=== PATIENT | female | born 1940 | race Caucasian/White ===

== ENCOUNTER 2019-09-21 14:12 | Inpatient (IN) | payer MEDICARE ==
[2019-09-21 14:52] LABS: HEMOGLOBIN 14.5 g/dL (12.0-15.5); MEAN CORPUSCULAR HEMOGLOBIN 28.9 pg (27.0-33.4); MEAN CORPUSCULAR HGB CONC 33.7 g/dL (32.0-36.0); MEAN CORPUSCULAR VOLUME 86 fl (80-97); PLATELET COUNT 284 10^3/uL (150-450); RED BLOOD COUNT 5.01 10^6/uL (3.72-5.28); RED CELL DISTRIBUTION WIDTH 16.4 % (11.5-14.0); WHITE BLOOD COUNT 10.4 10^3/uL (4.0-10.5)
[2019-09-21 14:59] LABS: VENOUS BLOOD BASE EXCESS -1.4 mmol/L; VENOUS BLOOD HCO3 25.4 mmol/L (20-32); VENOUS BLOOD PCO2 50.6 mmHg (35-63); VENOUS BLOOD PH 7.32 (7.30-7.42)
--- NOTE | 2019-09-21 15:14 | RADIOLOGY REPORT (SQ) ---
EXAM DESCRIPTION: CHEST SINGLE VIEW IMAGES COMPLETED DATE/TIME: 09/21/2019 3:04 pm REASON FOR STUDY: sob COMPARISON: None. EXAM PARAMETERS: NUMBER OF VIEWS: One view. TECHNIQUE: Single frontal radiographic view of the chest acquired. RADIATION DOSE: NA LIMITATIONS: None. FINDINGS: LUNGS AND PLEURA: Atelectasis in the left medial base. Slight elevation of left hemidiaph ragm. Small left effusion cannot be excluded. No focal consolidation or pneumothorax. MEDIASTINUM AND HILAR STRUCTURES: No masses. Contour normal. HEART AND VASCULAR STRUCTURES: Heart normal in size. Normal vasculature. BONES: No acute findings. HARDWARE: None in the chest. OTHER: No other significant finding. IMPRESSION: Left basilar atelectasis. No other significant findings. TECHNICAL DOCUMENTATION: JOB ID: [id number] 2010 [employer]- All Rights Reserved Reading location - IP/workstation name: [email or web address]
[2019-09-21 15:15] LABS: PROTHROMBIN TIME 14.2 SEC (11.4-15.4)
[2019-09-21 15:18] LABS: ALBUMIN 3.9 g/dL (3.5-5.0); ALKALINE PHOSPHATASE 136 U/L (38-126); ANION GAP 9 (5-19); ASPARTATE AMINO TRANSFERASE 67 U/L (14-36); BILIRUBIN,TOTAL 0.4 mg/dL (0.2-1.3); BLOOD UREA NITROGEN 19 mg/dL (7-20); CALCIUM 9.5 mg/dL (8.4-10.2); CARBON DIOXIDE 27 mmol/L (22-30); CHLORIDE 103 mmol/L (98-107); GLUCOSE 125 mg/dL (75-110); POTASSIUM 3.9 mmol/L (3.6-5.0); TOTAL PROTEIN 6.9 g/dL (6.3-8.2)
[2019-09-21 15:27] LABS: TROPONIN I 0.031 ng/mL
[2019-09-21 15:35] LABS: ABSOLUTE LYMPHOCYTES# (MANUAL) 1.6 10^3/uL (0.5-4.7); ABSOLUTE MONOCYTES # (MANUAL) 0.6 10^3/uL (0.1-1.4); BASOPHILS % (MANUAL) 0 % (0-2); EOSINOPHILS % (MANUAL) 0 % (0-6); LYMPHOCYTES % (MANUAL) 15 % (13-45); MONOCYTES % (MANUAL) 6 % (3-13); SEGMENTED NEUTROPHILS % (MAN) 77 % (42-78); TOTAL CELLS COUNTED 100
[2019-09-21 15:36] LABS: HYPERSEGMENTED NEUTROPHILS PRESENT; PLATELET COMMENT ADEQUATE
[2019-09-21 15:37] LABS: ANISOCYTOSIS 1+
[2019-09-21 15:39] LABS: BURR CELLS SLIGHT
[2019-09-21 15:40] LABS: POLYCHROMASIA SLIGHT; SCHISTOCYTES SLIGHT
[2019-09-21 15:41] LABS: MYELOCYTES % (MANUAL) 2 % (0)
--- NOTE | 2019-09-21 16:33 | ER Document Report ---
ED General - General Chief Complaint: Shortness Of Breath Stated Complaint: SHORTNESS OF BREATH Time Seen by Provider: 09/21/19 14:18 Primary Care Provider: DIAMOND LOO MD [Primary Care Provider] - Follow up as needed Mode of Arrival: Medic Information source: Relative, Emergency Med Personnel TRAVEL OUTSIDE OF THE [place] IN LAST 30 DAYS: No - HPI Notes: Patient arrived in respiratory distress the history was obtained from paramedics as well as from the and family via the phone. They state that patient was sitting in her shower chair today taking a shower and being assisted by a software asset management analyst. Patient became unresponsive. Paramedics state that they found the patient with "gurgling" respirations, patient unresponsive, oxygen saturations in the 70s, and blood pressure of 80/40. They placed the patient on a nonr ebreather she would not tolerate CPAP and brought her to the hospital. She arrived here in respiratory distress and not able to give me history. Family states there is been no known covert virus exposures. There is been no recent illnesses. Patient has been in her normal state of health last 3 to 4 days per family. No recent falls or trauma. They state that she has had multiple episodes in the past of low blood pressure and they do not know of any known diagnosis that is been given to them that causes her blood pressure to go low. Patient symptoms were constant. They were severe. Nothing no made them worse. Apparently did get better with some supplemental oxygen. There is no radiation of the symptoms obviously. - Related Data Home Medications: amiodarone. donepezil hcl. eliquis. esomeprazole. furosemide. midodrine. hydrocortisone. pravastin. vanalaxine Past Medical History - General Information source: Emergency Med Personnel - Social History Smoking Status: Never Smoker Frequency of alcohol use: None Drug Abuse: None Family History: Reviewed & Not Pertinent Review of Systems - Review of Systems -: Yes ROS unobtainable due to patient's medical condition - Cannot obtain review of symptoms due to patient's altered mental status Physical Exam - Vital signs Vitals: Resp Pulse Ox 28 H 98 09/21/19 14:19 09/21/19 14:19 Interpretation: Hypotensive, Hypoxic, Tachypneic - General General appearance: Lethargic In distress: Moderate - HEENT Head: Normocephalic, Atraumatic Eyes: Normal Pupils: PERRL - Respiratory Respiratory status: Respiratory distress - Mild to moderate Chest status: Nontender Breath sounds: Decreased air movement, Rales Chest palpation: Normal - Cardiovascular Rhythm: Regular Heart sounds: Normal auscultation Murmur: No - Abdominal Inspection: Normal Distension: No distension Bowel sounds: Normal Tenderness: Nontender Organomegaly: No organomegaly - Back Back: Normal, Nontender - Extremities General upper extremity: Normal inspection, Nontender, Normal color, Normal ROM, Normal temperature General lower extremity: Nontender, Edema - 1+ bilateral, Normal color, Normal temperature. No: Audelia's sign - Neurological Cognition: Confused Orientation: Disoriented to place, Disoriented to time Andres Coma Scale Eye Opening: To Pain Continental Coma Scale Verbal: Confused Andres Coma Scale Motor: Obeys Commands Andres Coma Scale Total: 12 - Psychological Associated symptoms: Agitated, Anxious - Skin Skin Temperature: Warm Skin Moisture: Dry Skin Color: Normal Course - Re-evaluation Re-evalutation: 09/21/19 16:31 Patient arrived in respiratory distress. She was immediately placed on BiPAP. After approximately 15 to 20 minutes of BiPAP she had significant decrease of her work of breathing and she states she feels better. She was also given a bolus of fluid and blood pressure is now better. She states she is feeling better. Patient has no old records here making the details of her case somewhat difficult to ascertain. It appears the patient may have had a drop in her blood pressure while taking a shower which caused the patient to have a sudden onset of some pulmonary edema. Her lactate is elevated, I feel this is most likely due to the stress of being in respiratory distress. At this time I see no evidence of infection. She has no COVID virus exposures. She has no white count and no fever. A urine is still pending. I am going to withhold antibiotics at this time. Chest x-ray shows no evidence of infectious process or edema. Head CT is also pending although patient seems becoming back to her normal neurological status. No focal deficits are apparent. - Vital Signs Vital signs: Temp Pulse Resp BP Pulse Ox 97.5 F 77 20 112/60 95 09/21/19 15:42 09/21/19 15:42 09/21/19 15:42 09/21/19 15:42 09/21/19 15:42 - Laboratory Result Diagrams: 09/21/19 14:36 09/21/19 14:36 Laboratory results interpreted by me: 09/21/19 09/21/19 09/21/19 14:36 14:36 14:36 RDW 16.4 H Myelocytes % 2 H Est GFR ( Amer) 55 L Est GFR (MDRD) Non-Af 46 L Glucose 125 H Lactic Acid AST 67 H ALT 68 H Alkaline Phosphatase 136 H NT-Pro-B Natriuret Pep 1310 H 09/21/19 14:36 RDW Myelocytes % Est GFR ( Amer) Est GFR (MDRD) Non-Af Glucose Lactic Acid 2.7 H AST ALT Alkaline Phosphatase NT-Pro-B Natriuret Pep - Diagnostic Test Radiology reviewed: Image reviewed, Reports reviewed Discharge - Discharge Clinical Impression: Acute respiratory failure with hypoxia Altered mental status Qualifiers: Altered mental status type: unspecified Qualified Code(s): R41.82 - Altered mental status, unspecified Hypotension Qualifiers: Hypotension type: idiopathic hypotension Qualified Code(s): I95.0 - Idiopathic hypotension Condition: Serious Disposition: ADMITTED OBSERVATION Admitting Provider: Diaz (Hospitalist) Unit Admitted: Telemetry Referrals: DIAMOND LOO MD [Primary Care Provider] - Follow up as needed
--- NOTE | 2019-09-21 17:31 | EKG REPORT ---
SEVERITY:- ABNORMAL ECG - SINUS OR ECTOPIC ATRIAL RHYTHM FIRST DEGREE AV BLOCK INFERIOR INFARCT, AGE INDETERMINATE LATERAL LEADS ARE ALSO INVOLVED BORDERLINE PROLONGED QT INTERVAL : Confirmed by: Aleena Morales MD 21-Sep-2019 17:31:03
[2019-09-21 18:09] LABS: APPEARANCE,URINE CLOUDY; BILIRUBIN,URINE NEGATIVE (NEGATIVE); CALCIUM OXALATE CRYSTALS,URINE MODERATE /HPF; GLUCOSE, URINE NEGATIVE (NEGATIVE); KETONES,URINE TRACE mg/dL (NEGATIVE); PROTEIN,URINE 100 mg/dL (NEGATIVE)
[2019-09-21 18:11] LABS: COLOR,URINE YELLOW
[2019-09-21] MEDS ORDERED: ONDANSETRON 4 MG TAB.RAPDIS PO PRN (19:25)
[2019-09-21] MEDS ORDERED: ALBUTEROL SULFATE 0.083% NEB 2.5 MG/3 ML AMPUL NEB PRN (19:25)
[2019-09-21] MEDS ORDERED: ONDANSETRON HCL INJ/PF 4 MG/2 ML SDV IV PRN (19:25)
--- NOTE | 2019-09-21 19:55 | PDOC H&P ---
History of Present Illness Admission Date/PCP: 09/21/19 16:56 DIAMOND LOO MD History of Present Illness: NICOLE DIOP is a 79 year old female who presents with a 1 day history of a syncopal episode while in the shower resulting in a fall at home. Patient became unresponsive after she experienced a pain in the right side of her neck, systolic blood pressure noted to be in the 80s when EMS arrived. Per , this is occurred multiple times in the past. History very difficult to obtain from patient as she is requiring BiPAP for respiratory support given her oxygen saturations were quite low on admission. Much of the history was obtained from her who I spoke with extensively on the phone. He does not know if the patient has atrial fibrillation however she is on amiodarone and Eliquis which would suggest she has some sort of cardiac arrhythmia chronically. He does note that she has peripheral vascular disease and has had carotid artery disease status post carotid endarterectomy. Labs here show notably elevated BNP to 1310, UA consistent with mild to moderate UTI, elevated lactic acid at 2.7, troponin 0 0.031 and patient denies chest pain. She will be admitted to MedSurg floor. Her presentation is not specifically consistent with COVID-19 but this test is been ordered by the ED and is pending. She will be started on ceftriaxone and her home cardiac medications will be restarted. Given she is on midodrine, it is quite possible she has orthostatic hypotension chronically which would explain her frequent falls. Past Medical History Cardiac Medical History: Reports: Atrial Fibrillation, Coronary Artery Disease, DVT, Hypertension, Peripheral Vascular Disease Pulmonary Medical History: Reports: Chronic Obstructive Pulmonary Disease (COPD) Past Surgical History Past Surgical History: Reports: Carotid Endarterectomy, Other - Bowel resection due to peritonitis Social History Information Source: Patient, POA - Power of Sales Force Administrator, Emergency Med Personnel Smoking Status: Never Smoker Frequency of Alcohol Use: None Hx Recreational Drug Use: No - Advance Directive Resuscitation Status: Full Code Surrogate healthcare decision maker:: Family History Family History: Reviewed & Not Pertinent, CAD Parental Family History Reviewed: Yes Children Family History Reviewed: Yes Sibling(s) Family History Reviewed.: Yes Medication/Allergy Home Medications: Amiodarone HCl [Cordarone 200 mg Tablet] 200 mg PO Q12 09/21/19 Apixaban [Eliquis 5 mg Tablet] 5 mg PO BID 09/21/19 Donepezil HCl [Aricept 5 mg Tablet] 5 mg PO QHS 09/21/19 Esomeprazole Magnesium 40 mg PO BID 09/21/19 Furosemide [Lasix 40 mg Tablet] 40 mg PO BID 09/21/19 Hydrocortisone [Cortef 10 Mg Tablet] 50 mg PO DAILY 09/21/19 Lorazepam 0.5 mg PO BID@08,14 09/21/19 Lorazepam 1 mg PO QHS 09/21/19 Midodrine HCl 10 mg PO TID 09/21/19 Potassium Chloride [Klor-Con 10 Meq Tablet ER] 20 meq PO BID 09/21/19 Pravastatin Sodium 20 mg PO QHS 09/21/19 Venlafaxine HCl ER [Effexor Xr 75 mg Cap.sr] 75 mg PO DAILY 09/21/19 Venlafaxine HCl [Venlafaxine HCl ER] 150 mg PO DAILY 09/21/19 Allergies/Adverse Reactions: No Known Allergies Allergy (Verified 09/21/19 18:21) Review of Systems All systems: reviewed and no additional remarkable complaints except as stated - Review of systems as per HPI, otherwise negative Physical Exam Vital Signs: Temp Pulse Resp BP Pulse Ox 97.5 F 77 17 144/82 H 100 09/21/19 15:42 09/21/19 15:42 09/21/19 19:01 09/21/19 19:01 09/21/19 19:01 Intake & Output 09/20/19 09/21/19 09/22/19 06:59 06:59 06:59 Weight 80 kg General appearance: PRESENT: mild distress, well-developed, well-nourished Head exam: PRESENT: atraumatic, normocephalic Eye exam: PRESENT: conjunctiva pink Mouth exam: PRESENT: moist Respiratory exam: PRESENT: clear to auscultation bhupendra. ABSENT: rales, rhonchi, wheezes Cardiovascular exam: PRESENT: RRR. ABSENT: diastolic murmur, rubs, systolic murmur GI/Abdominal exam: PRESENT: normal bowel sounds, soft, other - Midline surgical scar well-healed. ABSENT: distended, guarding, mass, organolmegaly, rebound, tenderness Rectal exam: PRESENT: deferred Extremities exam: ABSENT: pedal edema Neurological exam: PRESENT: alert, awake, oriented to person, oriented to place Psychiatric exam: PRESENT: appropriate affect Skin exam: PRESENT: dry, intact, warm Results Laboratory Results: 09/21/19 14:36 09/21/19 14:36 09/21/19 09/21/19 09/21/19 14:36 14:36 14:36 WBC 10.4 RBC 5.01 Hgb 14.5 Hct 43.0 MCV 86 MCH 28.9 MCHC 33.7 RDW 16.4 H Plt Count 284 Seg Neutrophils % Not Reportable VBG pH VBG pCO2 VBG HCO3 VBG Base Excess Sodium 139.0 Potassium 3.9 Chloride 103 Carbon Dioxide 27 Anion Gap 9 BUN 19 Creatinine 1.14 Est GFR ( Amer) 55 L Glucose 125 H Lactic Acid 2.7 H Calcium 9.5 Total Bilirubin 0.4 AST 67 H Alkaline Phosphatase 136 H Total Protein 6.9 Albumin 3.9 Urine Color Urine Appearance Urine pH Ur Specific Winger Urine Protein Urine Glucose (UA) Urine Ketones Urine Blood Urine RBC (Auto) 09/21/19 09/21/19 14:40 17:33 WBC RBC Hgb Hct MCV MCH MCHC RDW Plt Count Seg Neutrophils % VBG pH 7.32 VBG pCO2 50.6 VBG HCO3 25.4 VBG Base Excess -1.4 Sodium Potassium Chloride Carbon Dioxide Anion Gap BUN Creatinine Est GFR ( Amer) Glucose Lactic Acid Calcium Total Bilirubin AST Alkaline Phosphatase Total Protein Albumin Urine Color YELLOW Urine Appearance CLOUDY Urine pH 5.0 Ur Specific Winger 1.020 Urine Protein 100 H Urine Glucose (UA) NEGATIVE Urine Ketones TRACE H Urine Blood NEGATIVE Urine RBC (Auto) 4 09/21/19 14:36 Troponin I 0.031 NT-Pro-B Natriuret Pep 1310 H Impressions: Chest X-Ray 09/21/19 14:18 IMPRESSION: Left basilar atelectasis. No other significant findings. Assessment and Plan - Diagnosis (1) Syncope and collapse Is this a current diagnosis for this admission?: Yes Plan: Likely due to UTI, possibly also flash pulmonary edema exacerbated by infection Respiratory support with BiPAP and supplemental oxygen Albuterol nebulizer as needed Restart cardiac medications including diuretics Treat underlying cause which is UTI with antibiotics Likely has chronic orthostatic hypotension as she is on long-term midodrine and has a history of frequent falls at home; overall, a risky candidate to be on chronic anticoagulation and her health information provider should address this with the patient and her family at the next visit (2) Acute hypoxemic respiratory failure Is this a current diagnosis for this admission?: Yes Plan: Due to flash pulmonary edema and CHF exacerbation Diuretics restarted BiPAP and supplemental oxygen Bronchial hygiene, ICS (3) Acute metabolic encephalopathy Is this a current diagnosis for this admission?: Yes (4) CAD (coronary artery disease) Qualifiers: Coronary Disease-Associated Artery/Lesion type: unspecified vessel or lesion type Associated angina: without angina Is this a current diagnosis for this admission?: Yes Plan: Status post coronary artery stents No chest pain here Troponin unremarkable (5) Chronic anticoagulation Is this a current diagnosis for this admission?: Yes Plan: Presumably due to atrial fibrillation though patient family do not endorse the specific diagnosis as they cannot remember Continued Eliquis and amiodarone Telemetry (6) Debility Is this a current diagnosis for this admission?: Yes Plan: Has not been able to walk in over 1 year per Consider physical therapy consult (7) H/O carotid endarterectomy Is this a current diagnosis for this admission?: Yes (8) Hx of deep venous thrombosis Is this a current diagnosis for this admission?: Yes (9) PVD (peripheral vascular disease) Is this a current diagnosis for this admission?: Yes Plan: Has history of peripheral artery stenting per Continue anticoagulation as above - Time Time Spent with patient: 35 or more minutes Medications reviewed and adjusted accordingly: Yes Within: within 72 hours - Inpatient Certification Based on my medical assessment, after consideration of the patient's comorbidities, presenting symptoms, or acuity I expect that the services needed warrant INPATIENT care.: Yes I certify that my determination is in accordance with my understanding of Medicare's requirements for reasonable and necessary INPATIENT services [42 CFR 412.3e].: Yes Medical Necessity: Significant Comorbidiites Make Outpatient Treatment Too Risky, Need Close Monitoring Due to Risk of Patient Decompensation, Need for IV Antibiotics, Risk of Complication if Not Cared For in Hospital, Risk of Diagnosis Which Will Require Inpatient Eval/Care/Monitoring
--- NOTE | 2019-09-21 19:56 | ADVANCED CARE ---
- Diagnosis (1) Syncope and collapse Diagnosis Current: Yes (2) Acute hypoxemic respiratory failure Diagnosis Current: Yes (3) Acute metabolic encephalopathy Diagnosis Current: Yes (4) CAD (coronary artery disease) Diagnosis Current: Yes (5) Chronic anticoagulation Diagnosis Current: Yes (6) Debility Diagnosis Current: Yes (7) H/O carotid endarterectomy Diagnosis Current: Yes (8) Hx of deep venous thrombosis Diagnosis Current: Yes (9) PVD (peripheral vascular disease) Diagnosis Current: Yes Attendance: Patient and Resuscitation Status: Full Code Discussion: All aspects of code status discussed with patient/POA including cardioversion, chest compressions, and intubation and the patient/POA indicated they wish to be full code MPOA is designated as: Willard Time Spent: Over 17 minutes
--- NOTE | 2019-09-21 20:22 | RADIOLOGY REPORT (SQ) ---
INDICATION: ams. COMPARISON: None CORRELATION: None TECHNIQUE: Noncontrast spiral axial CT images were obtained from the skull base to vertex. This exam was performed according to our departmental dose-optimization program, which includes automated exposure control, adjustment of the mA and/or kV according to patient size and/or use of iterative reconstruction techniques. Significant artifact from overlying hardware FINDINGS: There is no evidence of acute intracranial hemorrhage, midline shift, mass effect or mass lesion. Encephalomalacia right parietal from a remote event. There is no evidence of acute large territory infarct. Age-related involutional changes are identified. Presumed old small vessel ischemic changes are seen predominantly in a periventricular distribution.. Vascular calcification The visualized paranasal sinuses are grossly clear. The orbits and eyeballs are unremarkable. Bilateral mastoid effusions. Skull base and calvarium appear intact. IMPRESSION: No acute intracranial process is identified. Bilateral mastoid effusions. The cause of the patient's mental status change is not identified on this examination.
[2019-09-21] MEDS: AMIODARONE HCL 200 MG TABLET PO SCH (22:35)
[2019-09-21] MEDS: DONEPEZIL HCL 5 MG TABLET PO SCH (22:35)
[2019-09-21] MEDS: CEFTRIAXONE 2 GM/D5W RTU 2 GM/50 ML RTUPB IV SCH (23:00)
[2019-09-21 23:53] LABS: ANION GAP 6 (5-19); BLOOD UREA NITROGEN 22 mg/dL (7-20); CALCIUM 9.4 mg/dL (8.4-10.2); CARBON DIOXIDE 29 mmol/L (22-30); CHLORIDE 104 mmol/L (98-107); GLUCOSE 126 mg/dL (75-110); POTASSIUM 4.3 mmol/L (3.6-5.0)
[2019-09-21] MEDS: ACETAMINOPHEN 325 MG TABLET PO PRN (23:55)
[2019-09-22 04:06] LABS: ABSOLUTE LYMPHOCYTES (AUTO) 1.7 10^3/uL (0.5-4.7); ABSOLUTE MONOCYTES (AUTO) 0.8 10^3/uL (0.1-1.4); BASOPHILS % (AUTO) 0.4 % (0-2); EOSINOPHILS % (AUTO) 0.1 % (0-6); HEMOGLOBIN 13.9 g/dL (12.0-15.5); LYMPHOCYTES % (AUTO) 18.1 % (13-45); MEAN CORPUSCULAR HGB CONC 33.9 g/dL (32.0-36.0); MEAN CORPUSCULAR VOLUME 86 fl (80-97); MONOCYTES % (AUTO) 8.1 % (3-13); PLATELET COUNT 225 10^3/uL (150-450); RED BLOOD COUNT 4.79 10^6/uL (3.72-5.28); RED CELL DISTRIBUTION WIDTH 16.8 % (11.5-14.0); SEGMENTED NEUTROPHILS % (AUTO) 73.3 % (42-78); TOTAL CELLS COUNTED % (AUTO) 100 %; WHITE BLOOD COUNT 9.5 10^3/uL (4.0-10.5)
[2019-09-22] MEDS: ACETAMINOPHEN 325 MG TABLET PO PRN ×4 (04:12→23:12)
[2019-09-22] MEDS: CEFTRIAXONE 2 GM/D5W RTU 2 GM/50 ML RTUPB IV SCH ×2 (04:14→21:40)
[2019-09-22] MEDS: PANTOPRAZOLE SODIUM 40 MG TABLET.DR PO SCH ×2 (06:05→19:02)
[2019-09-22] MEDS: LORAZEPAM 0.5 MG TABLET PO SCH ×2 (08:47→14:40)
[2019-09-22] MEDS: MIDODRINE HCL 5 MG TABLET PO SCH ×3 (09:38→19:02)
[2019-09-22] MEDS: VENLAFAXINE HCL 75 MG CAP.SR.24H PO SCH ×2 (09:39→09:42)
[2019-09-22] MEDS: POTASSIUM CHLORIDE 10 MEQ TABLET.ER PO SCH ×2 (09:39→19:02)
[2019-09-22] MEDS: FUROSEMIDE 40 MG TABLET PO SCH ×2 (09:39→19:03)
[2019-09-22] MEDS: DOCUSATE SODIUM 100 MG/10 ML UDC PO SCH (09:39)
[2019-09-22] MEDS: AMIODARONE HCL 200 MG TABLET PO SCH ×2 (09:39→21:41)
[2019-09-22] MEDS: APIXABAN 5 MG TABLET PO SCH ×2 (09:39→19:03)
[2019-09-22] MEDS: HYDROCORTISONE 10 MG TABLET PO SCH (09:41)
[2019-09-22] MEDS ORDERED: ENOXAPARIN SODIUM INJ 40 MG/0.4 ML DISP.SYRIN SUBCUT SCH (10:00)
[2019-09-22 13:54] LABS: PATH REVIEW PATHOLOGIST REVIEWED
[2019-09-22 15:58] LABS: ANION GAP 7 (5-19); BLOOD UREA NITROGEN 24 mg/dL (7-20); CALCIUM 9.2 mg/dL (8.4-10.2); CARBON DIOXIDE 25 mmol/L (22-30); CHLORIDE 106 mmol/L (98-107); GLUCOSE 103 mg/dL (75-110); POTASSIUM 4.5 mmol/L (3.6-5.0)
--- NOTE | 2019-09-22 18:38 | PDOC PROGRESS REPORT ---
Subjective Progress Note for:: 09/22/19 Subjective:: 09/22/2019 Patient currently satting 96% on 2 L with unlabored comfortable breathing. COVID testing still pending. Her lactate is normal. Creatinine is slightly pasquale vated and it does not seem that we are tracking her urine output. Urine culture is still pending but preliminary is showing gram-negative rods. Ceftriaxone is continued. Blood cultures pending. Patient is awake and alert today though she is extremely hard of hearing at baseline. I will check a carotid ultrasound given her history of prior carotid vascular disease and subsequent necessitated CEA given she is currently admitted for a syncopal episode. Possible she has had regression of her prior carotid disease. Overall she seems to be doing better. She has some mild shortness of breath and cough, otherwise feels relatively well. Reason For Visit: SYNCOPE,FALL AT HOME,ACUTE HYPOXEMIC RESPIRATORY Physical Exam Vital Signs: Temp Pulse Resp BP Pulse Ox 97.7 F 68 16 132/88 H 96 09/22/19 03:00 09/22/19 14:00 09/22/19 08:27 09/22/19 08:27 09/22/19 08:27 Intake & Output 09/21/19 09/22/19 09/23/19 06:59 06:59 06:59 Intake Total 360 240 Balance 360 240 Weight 80 kg General appearance: PRESENT: no acute distress, well-developed, well-nourished Head exam: PRESENT: atraumatic, normocephalic Eye exam: PRESENT: conjunctiva pink Mouth exam: PRESENT: moist Respiratory exam: PRESENT: clear to auscultation bhupendra. ABSENT: rales, rhonchi, wheezes Cardiovascular exam: PRESENT: RRR. ABSENT: diastolic murmur, rubs, systolic murmur GI/Abdominal exam: PRESENT: normal bowel sounds, soft. ABSENT: distended, guarding, mass, organolmegaly, rebound, tenderness Extremities exam: ABSENT: pedal edema Neurological exam: PRESENT: alert, awake, oriented to person, oriented to place Psychiatric exam: PRESENT: appropriate affect Skin exam: PRESENT: dry, intact, warm Results Laboratory Results: 09/22/19 03:33 09/22/19 03:33 09/21/19 09/21/19 09/22/19 23:15 23:15 03:33 WBC RBC Hgb Hct MCV MCH MCHC RDW Plt Count Seg Neutrophils % Sodium 138.7 Potassium 4.3 Chloride 104 Carbon Dioxide 29 Anion Gap 6 BUN 22 H Creatinine 1.35 H Est GFR ( Amer) 46 L Glucose 126 H Lactic Acid 1.5 1.1 Calcium 9.4 Phosphorus Magnesium 09/22/19 09/22/19 09/22/19 03:33 03:33 03:33 WBC 9.5 RBC 4.79 Hgb 13.9 Hct 41.0 MCV 86 MCH 29.0 MCHC 33.9 RDW 16.8 H Plt Count 225 Seg Neutrophils % 73.3 Sodium 138.1 Potassium 4.5 Chloride 106 Carbon Dioxide 25 Anion Gap 7 BUN 24 H Creatinine 1.42 H Est GFR ( Amer) 43 L Glucose 103 Lactic Acid Calcium 9.2 Phosphorus 5.0 H Magnesium 1.9 09/21/19 14:36 Troponin I 0.031 NT-Pro-B Natriuret Pep 1310 H Impressions: Chest X-Ray 09/21/19 14:18 IMPRESSION: Left basilar atelectasis. No other significant findings. Head CT 09/21/19 14:19 IMPRESSION: No acute intracranial process is identified. Bilateral mastoid effusions. The cause of the patient's mental status change is not identified on this examination. Assessment and Plan - Diagnosis (1) Syncope and collapse Is this a current diagnosis for this admission?: Yes Plan: Likely due to UTI, possibly also flash pulmonary edema exacerbated by infection, restarted home Lasix which has been effective Respiratory support with BiPAP and supplemental oxygen transition to nasal cannula Albuterol nebulizer as needed Restart cardiac medications including diuretics Treat underlying cause which is UTI with antibiotics Likely has chronic orthostatic hypotension as she is on long-term midodrine and has a history of frequent falls at home; overall, a risky candidate to be on chronic anticoagulation and her pi/senior research associate should address this with the patient and her family at the next visit Carotid ultrasound ordered given her prior history of carotid disease and CVA (2) Acute hypoxemic respiratory failure Is this a current diagnosis for this admission?: Yes Plan: Due to flash pulmonary edema and CHF exacerbation Diuretics restarted BiPAP and supplemental oxygen Bronchial hygiene, ICS Gradually resolving, improving (3) Acute metabolic encephalopathy Is this a current diagnosis for this admission?: Yes Plan: Gradually resolving, improving Likely due to hypoxemia and UTI (4) CAD (coronary artery disease) Qualifiers: Coronary Disease-Associated Artery/Lesion type: unspecified vessel or lesion type Associated angina: without angina Is this a current diagnosis for this admission?: Yes (5) Chronic anticoagulation Is this a current diagnosis for this admission?: Yes (6) Debility Is this a current diagnosis for this admission?: Yes (7) H/O carotid endarterectomy Is this a current diagnosis for this admission?: Yes (8) Hx of deep venous thrombosis Is this a current diagnosis for this admission?: Yes (9) PVD (peripheral vascular disease) Is this a current diagnosis for this admission?: Yes - Time Time Spent with patient: 25-34 minutes Anticipated discharge: Home Within: within 72 hours - Inpatient Certification Based on my medical assessment, after consideration of the patient's comorbidities, presenting symptoms, or acuity I expect that the services needed warrant INPATIENT care.: Yes I certify that my determination is in accordance with my understanding of Medicare's requirements for reasonable and necessary INPATIENT services [42 CFR 412.3e].: Yes Medical Necessity: Significant Comorbidiites Make Outpatient Treatment Too Risky, Need Close Monitoring Due to Risk of Patient Decompensation, Need for IV Antibiotics, Risk of Complication if Not Cared For in Hospital, Risk of Diagnosis Which Will Require Inpatient Eval/Care/Monitoring
[2019-09-22] MEDS: ATORVASTATIN CALCIUM 10 MG TABLET PO SCH (21:41)
[2019-09-22] MEDS: DONEPEZIL HCL 5 MG TABLET PO SCH (21:41)
[2019-09-23] MEDS: PANTOPRAZOLE SODIUM 40 MG TABLET.DR PO SCH ×2 (05:41→18:07)
[2019-09-23 06:45] LABS: ABSOLUTE BASOPHILS # (AUTO) 0.1 10^3/uL (0.0-0.2); ABSOLUTE EOSINOPHILS # (AUTO) 0.1 10^3/uL (0.0-0.6); ABSOLUTE LYMPHOCYTES (AUTO) 2.3 10^3/uL (0.5-4.7); ABSOLUTE NEUT (AUTO) 7.3 10^3/uL (1.7-8.2); BASOPHILS % (AUTO) 0.7 % (0-2); EOSINOPHILS % (AUTO) 0.6 % (0-6); HEMATOCRIT 43.7 % (36.0-47.0); LYMPHOCYTES % (AUTO) 21.7 % (13-45); MEAN CORPUSCULAR HEMOGLOBIN 29.2 pg (27.0-33.4); MEAN CORPUSCULAR HGB CONC 34.3 g/dL (32.0-36.0); MEAN CORPUSCULAR VOLUME 85 fl (80-97); MONOCYTES % (AUTO) 9.4 % (3-13); PLATELET COUNT 230 10^3/uL (150-450); RED BLOOD COUNT 5.13 10^6/uL (3.72-5.28); RED CELL DISTRIBUTION WIDTH 16.4 % (11.5-14.0); SEGMENTED NEUTROPHILS % (AUTO) 67.6 % (42-78); TOTAL CELLS COUNTED % (AUTO) 100 %; WHITE BLOOD COUNT 10.8 10^3/uL (4.0-10.5)
[2019-09-23] MEDS: FUROSEMIDE 40 MG TABLET PO SCH ×2 (10:35→18:07)
[2019-09-23] MEDS: APIXABAN 5 MG TABLET PO SCH ×2 (10:35→18:07)
[2019-09-23] MEDS: DOCUSATE SODIUM 100 MG/10 ML UDC PO SCH (10:35)
[2019-09-23] MEDS: POTASSIUM CHLORIDE 10 MEQ TABLET.ER PO SCH ×2 (10:36→18:07)
[2019-09-23] MEDS: AMIODARONE HCL 200 MG TABLET PO SCH ×2 (10:36→22:50)
[2019-09-23] MEDS: VENLAFAXINE HCL 75 MG CAP.SR.24H PO SCH ×2 (10:36)
[2019-09-23] MEDS: MIDODRINE HCL 5 MG TABLET PO SCH ×3 (10:36→18:07)
[2019-09-23] MEDS: HYDROCORTISONE 10 MG TABLET PO SCH (10:38)
[2019-09-23] MEDS: LORAZEPAM 0.5 MG TABLET PO SCH ×2 (10:38→15:12)
--- NOTE | 2019-09-23 13:48 | PDOC PROGRESS REPORT ---
Subjective Progress Note for:: 09/23/19 Subjective:: 09/22/2019 Patient currently satting 96% on 2 L with unlabored comfortable breathing. COVID testing still pending. Her lactate is normal. Creatinine is slightly pasquale vated and it does not seem that we are tracking her urine output. Urine culture is still pending but preliminary is showing gram-negative rods. Ceftriaxone is continued. Blood cultures pending. Patient is awake and alert today though she is extremely hard of hearing at baseline. I will check a carotid ultrasound given her history of prior carotid vascular disease and subsequent necessitated CEA given she is currently admitted for a syncopal episode. Possible she has had regression of her prior carotid disease. Overall she seems to be doing better. She has some mild shortness of breath and cough, otherwise feels relatively well. 09/23/2019 Patient doing a bit better today. She is eager to go home. Her urine culture is growing pansensitive E. coli. Ceftriaxone was continued. I have ordered a carotid ultrasound and the results are pending right now. We will get physical therapy to see her. I expect her COVID test to be negative but this is not back yet. Need to wean the supplemental oxygen patient is on as I do not believe she actually needs it. If all goes well, patient may be able to discharge tomorrow to finish her antibiotic course. Reason For Visit: SYNCOPE,FALL AT HOME,ACUTE HYPOXEMIC RESPIRATORY Physical Exam Vital Signs: Temp Pulse Resp BP Pulse Ox 97.3 F 81 17 130/95 H 99 09/23/19 08:36 09/23/19 08:36 09/23/19 08:36 09/23/19 08:36 09/23/19 08:36 Intake & Output 09/22/19 09/23/19 09/24/19 06:59 06:59 06:59 Intake Total 360 290 Output Total 200 Balance 360 90 Weight 80 kg 81.2 kg General appearance: PRESENT: no acute distress, well-developed, well-nourished Head exam: PRESENT: atraumatic, normocephalic Eye exam: PRESENT: conjunctiva pink Mouth exam: PRESENT: moist Respiratory exam: PRESENT: clear to auscultation bhupendra. ABSENT: rales, rhonchi, wheezes Cardiovascular exam: PRESENT: RRR. ABSENT: diastolic murmur, rubs, systolic murmur GI/Abdominal exam: PRESENT: normal bowel sounds, soft. ABSENT: distended, guarding, mass, organolmegaly, rebound, tenderness Neurological exam: PRESENT: alert, awake, oriented to person, oriented to place Psychiatric exam: PRESENT: appropriate affect Skin exam: PRESENT: dry, intact, warm Results Laboratory Results: 09/23/19 06:16 09/22/19 03:33 09/22/19 09/23/19 03:33 06:16 WBC 10.8 H RBC 5.13 Hgb 15.0 Hct 43.7 MCV 85 MCH 29.2 MCHC 34.3 RDW 16.4 H Plt Count 230 Seg Neutrophils % 67.6 Sodium 138.1 Potassium 4.5 Chloride 106 Carbon Dioxide 25 Anion Gap 7 BUN 24 H Creatinine 1.42 H Est GFR ( Amer) 43 L Glucose 103 Calcium 9.2 09/21/19 17:33 Clean Catch Midstream Urine Culture - Final Escherichia Coli 09/21/19 14:36 Troponin I 0.031 NT-Pro-B Natriuret Pep 1310 H Impressions: Chest X-Ray 09/21/19 14:18 IMPRESSION: Left basilar atelectasis. No other significant findings. Head CT 09/21/19 14:19 IMPRESSION: No acute intracranial process is identified. Bilateral mastoid effusions. The cause of the patient's mental status change is not identified on this examination. Assessment and Plan - Diagnosis (1) Syncope and collapse Is this a current diagnosis for this admission?: Yes Plan: Likely due to UTI, possibly also flash pulmonary edema exacerbated by infection, restarted home Lasix which has been effective Respiratory support with BiPAP and supplemental oxygen transition to nasal cannula Albuterol nebulizer as needed Restart cardiac medications including diuretics Treat underlying cause which is UTI with antibiotics Likely has chronic orthostatic hypotension as she is on long-term midodrine and has a history of frequent falls at home; overall, a risky candidate to be on chronic anticoagulation and her integration lead should address this with the patient and her family at the next visit Carotid ultrasound ordered given her prior history of carotid disease and CVA; done but results are pending No further syncope since admission (2) Acute hypoxemic respiratory failure Is this a current diagnosis for this admission?: Yes Plan: Due to flash pulmonary edema and CHF exacerbation Diuretics restarted BiPAP and supplemental oxygen Bronchial hygiene, ICS Gradually resolving, improving Wean supplemental oxygen, saturation goal 92% or above (3) Acute metabolic encephalopathy Is this a current diagnosis for this admission?: Yes Plan: Gradually resolving, improving Likely due to hypoxemia and UTI Nearly resolved to baseline (4) CAD (coronary artery disease) Qualifiers: Coronary Disease-Associated Artery/Lesion type: unspecified vessel or lesion type Associated angina: without angina Is this a current diagnosis for this admission?: Yes (5) Chronic anticoagulation Is this a current diagnosis for this admission?: Yes (6) Debility Is this a current diagnosis for this admission?: Yes (7) H/O carotid endarterectomy Is this a current diagnosis for this admission?: Yes (8) Hx of deep venous thrombosis Is this a current diagnosis for this admission?: Yes (9) PVD (peripheral vascular disease) Is this a current diagnosis for this admission?: Yes - Time Time Spent with patient: 25-34 minutes Medications reviewed and adjusted accordingly: Yes Anticipated discharge: Home Within: within 48 hours - Inpatient Certification Based on my medical assessment, after consideration of the patient's comorbidities, presenting symptoms, or acuity I expect that the services needed warrant INPATIENT care.: Yes I certify that my determination is in accordance with my understanding of Medicare's requirements for reasonable and necessary INPATIENT services [42 CFR 412.3e].: Yes Medical Necessity: Significant Comorbidiites Make Outpatient Treatment Too Ris [place], Need Close Monitoring Due to Risk of Patient Decompensation, Need for IV Antibiotics, Risk of Complication if Not Cared For in Hospital, Risk of Diagnosis Which Will Require Inpatient Eval/Care/Monitoring
--- NOTE | 2019-09-23 14:14 | RADIOLOGY REPORT (SQ) ---
EXAM DESCRIPTION: CAROTID DOPPLER IMAGES COMPLETED DATE/TIME: 09/23/2019 1:55 pm REASON FOR STUDY: vascular disease, SYNCOPE N39.0 URINARY TRACT INFECTION, SITE NOT SPECIFIED COMPARISON: None. TECHNIQUE: Grayscale ultrasound, Doppler velocity and spectra, and color Doppler images acquired of the extra-cranial carotid and vertebral arteries. Images stored on PACS. LIMITATIONS: None. FINDINGS: RIGHT CAROTID CCA Velocities: Within normal limits. Heavily calcified plaque in the distal common carotid artery. ICA Velocities Peak systolic 94 cm/s. End diastolic 23 cm/s. Proximal ICA/CCA peak systolic ratio 0.9. Spectra normal. No significant plaque. LEFT CAROTID CCA Velocities: Within normal limits. Heavily calcified plaque in the left common carotid artery. ICA Velocities Peak systolic 113 cm/s. End diastolic 21 cm/s. Proximal ICA/CCA peak systolic ratio 1.6. Spectra normal. No significant plaque. VERTEBRAL ARTERIES: Antegrade flow in the right vertebral artery. There is retrograde flow in the le ft vertebral artery. SUBCLAVIAN ARTERIES: No finding. OTHER: No other significant finding. IMPRESSION: Heavily calcified plaque in the right left distal common carotid arteries. No hemodynam ically significant stenosis in the internal carotid arteries. There is retrograde flow in the left v ertebral artery. COMMENT: Quality ID #[id number]: Velocity criteria are extrapolated from the diameter data as defined by t he Society of Radiologists in Ultrasound Consensus Conference. Radiology 2003: 229; 340-346. TECHNICAL DOCUMENTATION: JOB ID: [id number] 2010 [employer]- All Rights Reserved Reading location - IP/workstation name: [email or web address]
[2019-09-23] MEDS: CEFTRIAXONE 2 GM/D5W RTU 2 GM/50 ML RTUPB IV SCH ×2 (16:24→22:49)
[2019-09-23] MEDS ORDERED: DIPHENHYDRAMINE HCL 50 MG/ML VIAL IV PRN (17:43)
[2019-09-23 20:45] LABS: ANION GAP 9 (5-19); BLOOD UREA NITROGEN 25 mg/dL (7-20); CALCIUM 9.6 mg/dL (8.4-10.2); CARBON DIOXIDE 28 mmol/L (22-30); CHLORIDE 97 mmol/L (98-107); GLUCOSE 113 mg/dL (75-110); POTASSIUM 4.1 mmol/L (3.6-5.0)
[2019-09-23] MEDS: ATORVASTATIN CALCIUM 10 MG TABLET PO SCH (22:49)
[2019-09-23] MEDS: DONEPEZIL HCL 5 MG TABLET PO SCH (22:50)
[2019-09-24] MEDS: PANTOPRAZOLE SODIUM 40 MG TABLET.DR PO SCH (05:45)
[2019-09-24 07:14] LABS: HEMATOCRIT 42.2 % (36.0-47.0); HEMOGLOBIN 14.6 g/dL (12.0-15.5); MEAN CORPUSCULAR HEMOGLOBIN 29.4 pg (27.0-33.4); MEAN CORPUSCULAR HGB CONC 34.6 g/dL (32.0-36.0); MEAN CORPUSCULAR VOLUME 85 fl (80-97); PLATELET COUNT 227 10^3/uL (150-450); RED BLOOD COUNT 4.97 10^6/uL (3.72-5.28); RED CELL DISTRIBUTION WIDTH 16.6 % (11.5-14.0); WHITE BLOOD COUNT 7.9 10^3/uL (4.0-10.5)
[2019-09-24 08:45] LABS: ABSOLUTE LYMPHOCYTES# (MANUAL) 1.7 10^3/uL (0.5-4.7); ABSOLUTE MONOCYTES # (MANUAL) 0.5 10^3/uL (0.1-1.4); BASOPHILS % (MANUAL) 1 % (0-2); EOSINOPHILS % (MANUAL) 1 % (0-6); LYMPHOCYTES % (MANUAL) 22 % (13-45); MONOCYTES % (MANUAL) 6 % (3-13); SEGMENTED NEUTROPHILS % (MAN) 70 % (42-78); TOTAL CELLS COUNTED 100
[2019-09-24 08:46] LABS: ANISOCYTOSIS 1+; PLATELET COMMENT ADEQUATE; PLATELET GIANT PRESENT
[2019-09-24] MEDS: DOCUSATE SODIUM 100 MG/10 ML UDC PO SCH (09:23)
[2019-09-24] MEDS: FUROSEMIDE 40 MG TABLET PO SCH (09:26)
[2019-09-24] MEDS: VENLAFAXINE HCL 75 MG CAP.SR.24H PO SCH ×2 (09:26→09:27)
[2019-09-24] MEDS: LORAZEPAM 0.5 MG TABLET PO SCH ×2 (09:26→15:24)
[2019-09-24] MEDS: APIXABAN 5 MG TABLET PO SCH (09:26)
[2019-09-24] MEDS: AMIODARONE HCL 200 MG TABLET PO SCH (09:26)
[2019-09-24] MEDS: POTASSIUM CHLORIDE 10 MEQ TABLET.ER PO SCH (09:26)
[2019-09-24] MEDS: MIDODRINE HCL 5 MG TABLET PO SCH ×2 (09:26→15:24)
[2019-09-24] MEDS: HYDROCORTISONE 10 MG TABLET PO SCH (09:26)
[2019-09-24] MEDS: ACETAMINOPHEN 325 MG TABLET PO PRN (15:25)
--- NOTE | 2019-09-24 17:02 | PDOC DISCHARGE SUMMARY ---
Impression - Admit/DC Date/PCP Admission Date/Primary Care Provider: 09/21/19 16:56 DIAMOND OLO MD Discharge Date: 09/24/19 - Discharge Diagnosis (1) Syncope and collapse Is this a current diagnosis for this admission?: Yes (2) Acute hypoxemic respiratory failure Is this a current diagnosis for this admission?: Yes (3) Acute metabolic encephalopathy Is this a current diagnosis for this admission?: Yes (4) CAD (coronary artery disease) Is this a current diagnosis for this admission?: Yes (5) Chronic anticoagulation Is this a current diagnosis for this admission?: Yes (6) Debility Is this a current diagnosis for this admission?: Yes (7) H/O carotid endarterectomy Is this a current diagnosis for this admission?: Yes (8) Hx of deep venous thrombosis Is this a current diagnosis for this admission?: Yes (9) PVD (peripheral vascular disease) Is this a current diagnosis for this admission?: Yes - Additional Information Resuscitation Status: Full Code Discharge Diet: As Tolerated Discharge Activity: Activity As Tolerated, Balance Activity w/Rest Referrals: DIAMOND LOO MD [Primary Care Provider] - Follow up as needed Prescriptions: Amoxicillin 1 tab PO TID 3 Days #9 tab Home Medications: Amiodarone HCl [Cordarone 200 mg Tablet] 200 mg PO Q12 09/21/19 Apixaban [Eliquis 5 mg Tablet] 5 mg PO BID 09/21/19 Donepezil HCl [Aricept 5 mg Tablet] 5 mg PO QHS 09/21/19 Esomeprazole Magnesium 40 mg PO BID 09/21/19 Furosemide [Lasix 40 mg Tablet] 40 mg PO BID 09/21/19 Hydrocortisone [Cortef 10 mg Tablet] 50 mg PO DAILY 09/21/19 Lorazepam 0.5 mg PO BID@08,14 09/21/19 Lorazepam 1 mg PO QHS 09/21/19 Midodrine HCl 10 mg PO TID 09/21/19 Potassium Chloride [Klor-Con 10 Meq Tablet ER] 20 meq PO BID 09/21/19 Pravastatin Sodium 20 mg PO QHS 09/21/19 Venlafaxine HCl ER [Effexor Xr 75 mg Cap.sr] 75 mg PO DAILY 09/21/19 Venlafaxine HCl [Venlafaxine HCl ER] 150 mg PO DAILY 09/21/19 Amoxicillin 1 tab PO TID 3 Days #9 tab 09/24/19 History of Present Illiness History of Present Illness: NICOLE DIOP is a 79 year old female who presents with a 1 day history of a syncopal episode while in the shower resulting in a fall at home. Patient became unresponsive after she experienced a pain in the right side of her neck, systolic blood pressure noted to be in the 80s when EMS arrived. Per , this is occurred multiple times in the past. History very difficult to obtain from patient as she is requiring BiPAP for respiratory support given her oxygen saturations were quite low on admission. Much of the history was obtained from her who I spoke with extensively on the phone. He does not know if the patient has atrial fibrillation however she is on amiodarone and Eliquis which would suggest she has some sort of cardiac arrhythmia chronically. He does note that she has peripheral vascular disease and has had carotid artery disease status post carotid endarterectomy. Labs here show notably elevated BNP to 1310, UA consistent with mild to moderate UTI, elevated lactic acid at 2.7, troponin 0 0.031 and patient denies chest pain. She will be admitted to [facility] floor. Her presentation is not specifically consistent with COVID-19 but this test is been ordered by the ED and is pending. She will be started on ceftriaxone and her home cardiac medications will be restarted. Given she is on midodrine, it is quite possible she has orthostatic hypotension chronically which would explain her frequent falls. Hospital Course Hospital Course: Patient admitted for syncope, acute metabolic encephalopathy and found to have UTI per UA results with urine culture growing E. coli. Patient was started on ceftriaxone when she got 2 doses of and she was continued on amoxicillin at discharge to complete a 5-day course. Patient improved substantially after admission and her home medications were restarted in addition to antibiotics. Patient has a significant history of carotid disease which has required carotid endarterectomy in the past. I spoke at length with her son regarding her carotid disease which we saw again on ultrasound we did here. He stated that the patient has been told by her physicians that she would not survive another surgery if it were indicated. I recommended to the son to take the patient to her vascular surgeon for a follow-up appointment if they would like him to reassess her carotid disease though this may be of limited value if she is not a surgical candidate. I explained to the patient and her at bedside on day of discharge that I believe she may have further episodes of syncope as she is very likely operating at a maximum level of compensation for her multiple medical problems and any additional stress on her system is likely to tip her over into a hypotensive episode resulting in syncope. She is continued on her chronic midodrine and her other home medications. They will follow-up with her PCP within 7 days after discharge. All questions were answered to satisfaction and they thanked me for my care. Physical Exam Vital Signs: Temp Pulse Resp BP Pulse Ox 97.7 F 73 16 98/73 L 95 09/24/19 11:05 09/24/19 13:07 09/24/19 13:07 09/24/19 11:05 09/24/19 13:07 Intake & Output 09/23/19 09/24/19 09/25/19 06:59 06:59 06:59 Intake Total 290 550 240 Output Total 200 100 Balance 90 550 140 Weight 81.2 kg 70.2 kg General appearance: PRESENT: no acute distress, well-developed, well-nourished Head exam: PRESENT: atraumatic, normocephalic Eye exam: PRESENT: conjunctiva pink Mouth exam: PRESENT: moist Respiratory exam: PRESENT: clear to auscultation bhupendra. ABSENT: rales, rhonchi, wheezes Cardiovascular exam: PRESENT: RRR. ABSENT: diastolic murmur, rubs, systolic murmur GI/Abdominal exam: PRESENT: normal bowel sounds, soft. ABSENT: distended, guarding, mass, organolmegaly, rebound, tenderness Extremities exam: ABSENT: pedal edema Neurological exam: PRESENT: alert, awake, oriented to person, oriented to place, oriented to time, oriented to situation Psychiatric exam: PRESENT: appropriate affect Skin exam: PRESENT: dry, intact, warm Results Laboratory Results: WBC 7.9 10^3/uL (4.0-10.5) 09/24/19 06:25 RBC 4.97 10^6/uL (3.72-5.28) 09/24/19 06:25 Hgb 14.6 g/dL (12.0-15.5) 09/24/19 06:25 Hct 42.2 % (36.0-47.0) 09/24/19 06:25 MCV 85 fl (80-97) 09/24/19 06:25 MCH 29.4 pg (27.0-33.4) 09/24/19 06:25 MCHC 34.6 g/dL (32.0-36.0) 09/24/19 06:25 RDW 16.6 % (11.5-14.0) H 09/24/19 06:25 Plt Count 227 10^3/uL (150-450) 09/24/19 06:25 Lymph % (Auto) Not Reportable 09/24/19 06:25 Ritchie % (Auto) Not Reportable 09/24/19 06:25 Eos % (Auto) Not Reportable 09/24/19 06:25 Baso % (Auto) Not Reportable 09/24/19 06:25 Absolute Neuts (auto) Not Reportable 09/24/19 06:25 Absolute Lymphs (auto) Not Reportable 09/24/19 06:25 Absolute Monos (auto) Not Reportable 09/24/19 06:25 Absolute Eos (auto) Not Reportable 09/24/19 06:25 Absolute Basos (auto) Not Reportable 09/24/19 06:25 Total Counted 100 09/24/19 06:25 Seg Neutrophils % Not Reportable 09/24/19 06:25 Seg Neuts % (Manual) 70 % (42-78) 09/24/19 06:25 Lymphocytes % (Manual) 22 % (13-45) 09/24/19 06:25 Monocytes % (Manual) 6 % (3-13) 09/24/19 06:25 Eosinophils % (Manual) 1 % (0-6) 09/24/19 06:25 Basophils % (Manual) 1 % (0-2) 09/24/19 06:25 Myelocytes % 2 % (0) H 09/21/19 14:36 Abs Neuts (Manual) 5.5 10^3/uL (1.7-8.2) 09/24/19 06:25 Abs Lymphs (Manual) 1.7 10^3/uL (0.5-4.7) 09/24/19 06:25 Abs Monocytes (Manual) 0.5 10^3/uL (0.1-1.4) 09/24/19 06:25 Absolute Eos (Manual) 0.1 10^3/uL (0.0-0.6) 09/24/19 06:25 Abs Basophils (Manual) 0.1 10^3/uL (0.0-0.2) 09/24/19 06:25 Hypersegmented Neuts PRESENT 09/21/19 14:36 Giant Platelets PRESENT 09/24/19 06:25 Platelet Comment ADEQUATE 09/24/19 06:25 Polychromasia SLIGHT 09/21/19 14:36 Anisocytosis 1+ 09/24/19 06:25 [place] Cells SLIGHT 09/21/19 14:36 Schistocytes SLIGHT 09/21/19 14:36 PT 14.2 SEC (11.4-15.4) 09/21/19 14:40 INR 1.10 09/21/19 14:40 VBG pH 7.32 (7.30-7.42) 09/21/19 14:40 VBG pCO2 50.6 mmHg (35-63) 09/21/19 14:40 VBG HCO3 25.4 mmol/L (20-32) 09/21/19 14:40 VBG Base Excess -1.4 mmol/L 09/21/19 14:40 Sodium 134.3 mmol/L (137-145) L 09/23/19 20:20 Potassium 4.1 mmol/L (3.6-5.0) 09/23/19 20:20 Chloride 97 mmol/L (98-107) L 09/23/19 20:20 Carbon Dioxide 28 mmol/L (22-30) 09/23/19 20:20 Anion Gap 9 (5-19) 09/23/19 20:20 BUN 25 mg/dL (7-20) H 09/23/19 20:20 Creatinine 1.10 mg/dL (0.52-1.25) 09/23/19 20:20 Est GFR ( Amer) 58 (>60) L 09/23/19 20:20 Est GFR (MDRD) Non-Af 48 (>60) L 09/23/19 20:20 Glucose 113 mg/dL (75-110) H 09/23/19 20:20 POC Glucose 80 mg/dL (70-110) 09/23/19 08:39 Lactic Acid 1.1 mmol/L (0.7-2.1) 09/22/19 03:33 Calcium 9.6 mg/dL (8.4-10.2) 09/23/19 20:20 Phosphorus 5.0 mg/dL (2.5-4.5) H 09/22/19 03:33 Magnesium 1.9 mg/dL (1.6-2.3) 09/22/19 03:33 Total Bilirubin 0.4 mg/dL (0.2-1.3) 09/21/19 14:36 Direct Bilirubin 0.0 mg/dL (0.0-0.4) 09/21/19 14:36 Neonat Total Bilirubin Not Reportable 09/21/19 14:36 Neonat Direct Bilirubin Not Reportable 09/21/19 14:36 Neonat Indirect Bili Not Reportable 09/21/19 14:36 AST 67 U/L (14-36) H 09/21/19 14:36 ALT 68 U/L (<35) H 09/21/19 14:36 Alkaline Phosphatase 136 U/L (38-126) H 09/21/19 14:36 Troponin I 0.031 ng/mL 09/21/19 14:36 NT-Pro-B Natriuret Pep 1310 pg/mL (<450) H 09/21/19 14:36 Total Protein 6.9 g/dL (6.3-8.2) 09/21/19 14:36 Albumin 3.9 g/dL (3.5-5.0) 09/21/19 14:36 Urine Color YELLOW 09/21/19 17:33 Urine Appearance CLOUDY 09/21/19 17:33 Urine pH 5.0 (5.0-9.0) 09/21/19 17:33 Ur Specific [place] 1.020 09/21/19 17:33 Urine Protein 100 mg/dL (NEGATIVE) H 09/21/19 17:33 Urine Glucose (UA) NEGATIVE mg/dL (NEGATIVE) 09/21/19 17:33 Urine Ketones TRACE mg/dL (NEGATIVE) H 09/21/19 17:33 Urine Blood NEGATIVE (NEGATIVE) 09/21/19 17:33 Urine Nitrite (Reflex) NEGATIVE (NEGATIVE) 09/21/19 17:33 Urine Bilirubin NEGATIVE (NEGATIVE) 09/21/19 17:33 Urine Urobilinogen 2.0 mg/dL (<2.0) H 09/21/19 17:33 Leukocyte Esterase Rfl MODERATE (NEGATIVE) H 09/21/19 17:33 Urine RBC (Auto) 4 /HPF 09/21/19 17:33 U Hyaline Cast (Auto) 47 /LPF 09/21/19 17:33 Urine Bacteria (Auto) 1+ /HPF 09/21/19 17:33 Urine WBC (Reflex) 74 /HPF 09/21/19 17:33 Squamous Epi Cells Auto 2 /HPF 09/21/19 17:33 Calcium Oxalate Cr Auto MODERATE /HPF 09/21/19 17:33 Urine Mucus (Auto) FEW /LPF 09/21/19 17:33 Urine Ascorbic Acid NEGATIVE (NEGATIVE) 09/21/19 17:33 COVID-19 Source NASOPHARYNGEAL 09/22/19 05:20 COVID-19 (ADDI) NOT DETECTED 09/22/19 05:20 Slides for Path Review PATHOLOGIST REVIEWED 09/21/19 14:36 09/21/19 14:36 Troponin I 0.031 NT-Pro-B Natriuret Pep 1310 H Impressions: Chest X-Ray 09/21/19 14:18 IMPRESSION: Left basilar atelectasis. No other significant findings. Head CT 09/21/19 14:19 IMPRESSION: No acute intracranial process is identified. Bilateral mastoid effusions. The cause of the patient's mental status change is not identified on this examination. Carotid Doppler Study 09/23/19 00:00 IMPRESSION: Heavily calcified plaque in the right left distal common carotid arteries. No hemodynamically significant stenosis in the internal carotid ar teries. There is retrograde flow in the left vertebral artery. Plan Time Spent: Greater than 30 Minutes Stroke Is this a Stroke Patient?: No Acute Heart Failure - Is this a Heart Failure Patient?: No
[2019-09-24 17:21] VITALS: BP 104/61
== END 2019-09-24 18:20 | disposition home or self-care (01) | DRG 689 ==
LOC: ER 14:12 → EH 16:56 → OBSVTOIN 16:56 → 3N 22:30 → 4N 09-24 10:00
PROVIDERS: ADMIT Internal Medicine; ATTEND Internal Medicine
PROC: 5A09457 Assistance with Respiratory Ventilation, 24-96 Consecutive Hours, Continuous Positive Airway Pressure (ICD-10-PCS; principal; 2019-09-21)
DX: N39.0 Urinary tract infection, site not specified (principal); J96.01 Acute respiratory failure with hypoxia; G93.41 Metabolic encephalopathy; R40.2122 Coma scale, eyes open, to pain, at arrival to emergency department; I95.1 Orthostatic hypotension; I73.9 Peripheral vascular disease, unspecified; I48.91 Unspecified atrial fibrillation; I10 Essential (primary) hypertension; I65.23 Occlusion and stenosis of bilateral carotid arteries; I25.10 Atherosclerotic heart disease of native coronary artery without angina pectoris; B96.20 Unspecified Escherichia coli [E. coli] as the cause of diseases classified elsewhere; R40.2362 Coma scale, best motor response, obeys commands, at arrival to emergency department; R40.2242 Coma scale, best verbal response, confused conversation, at arrival to emergency department; Z03.818 Encounter for observation for suspected exposure to other biological agents ruled out; Z79.01 Long term (current) use of anticoagulants; Z86.718 Personal history of other venous thrombosis and embolism
CPT/HCPCS: 36415; 70450; 71045; 80048; 80053; 81001; 82803; 82962; 83605; 83735; 83880; 84100; 84484; 85025; 85610; 87040; 87086; 87088; 87186; 87635; 93005; 93010; 93880; 94660; 99285; C9803; J0696; J1200; J3490

== ENCOUNTER 2019-10-12 15:11 | Emergency (ER) | payer MEDICARE ==
--- NOTE | 2019-10-12 16:37 | ER Document Report ---
ED General - General Mode of Arrival: Medic Information source: Patient TRAVEL OUTSIDE OF THE [place] IN LAST 30 DAYS: No - Related Data Home Medications: Amiodarine, Donepezil, Eliquis, Lasix, Potassium, Venlafaxine, Pravastatin, Lorazepam <MATHEW RECIO - Last Filed: 10/12/19 18:38> <TEJINDER LOYA - Last Filed: 10/12/19 21:09> <ESVIN VARGAS - Last Filed: 10/13/19 05:55> <MARIAN LOVE - Last Filed: 10/13/19 09:52> - General Chief Complaint: Shortness Of Breath Stated Complaint: SHORTNESS OF BREATH Time Seen by Provider: 10/12/19 15:42 Notes: This 79-year-old woman presents to the emergency department with a complaint of syncopal episode at home. Apparently she was taking a shower and "passed out". She has had a similar episode approximately 3 weeks ago. She was put on O2 and transport because of low O2 sat. She denies chest pain or palpitations. She states that she was told that she has a vessel on the right side which is partially blocked and when she tilts her head in certain position it causes her to pass out. Presently she is alert and responsive with an O2 sat of 96% on 2 L. Apparently the family was told by the primary care doctor that she needs home O2, however, he could not evaluate her for this since she is been seen as a telemedicine patient. (MATHEW RECIO) - Related Data Allergies/Adverse Reactions: No Known Allergies Allergy (Verified 09/21/19 18:21) Past Medical History - Social History Smoking Status: Unknown if Ever Smoked Family History: Reviewed & Not Pertinent, CAD - Past Medical History Cardiac Medical History: Reports: Hx Atrial Fibrillation, Hx Coronary Artery Disease, Hx DVT, Hx Hypertension, Hx Peripheral Vascular Disease Pulmonary Medical History: Reports: Hx COPD GI Medical History: Reports: Hx Gastroesophageal Reflux Disease Psychiatric Medical History: Denies: Hx Depression Past Surgical History: Reports: Hx Carotid Endarterectomy, Other - Bowel resection due to peritonitis <MATHEW RECIO - Last Filed: 10/12/19 18:38> Review of Systems <MATHEW RECIO - Last Filed: 10/12/19 18:38> - Review of Systems Notes: Constitutional: Negative for fever. HENT: Negative for sore throat. Eyes: Negative for visual changes. Cardiovascular: Negative for chest pain. Respiratory: + shortness of breath. Gastrointestinal: Negative for abdominal pain, vomiting or diarrhea. Genitourinary: Negative for dysuria. Musculoskeletal: Negative for back pain. Skin: + Diffuse ecchymosis on the arms and legs Neurological: + Syncope 10 point ROS negative except as marked above and in HPI. (MATHEW RECIO) Physical Exam <MATHEW RECIO - Last Filed: 10/12/19 18:38> - Vital signs Vitals: Pulse Ox 94 10/12/19 15:16 - Notes Notes: PHYSICAL EXAMINATION: Physical Exam: General: Frail chronically ill-appearing elderly female no acute distress HEENT: NC/AT, pupils equal round and reactive to light, MM moist,nares clear, oropharynx clear, airway patent Neck: supple, no adenopathy, no masses. Good range of motion Lungs: clear, no wheezing, no rales no rhonchi CVS: Regular rate and rhythm no murmur gallop or rub Abdomen: Soft, active, nontender, no masses, no hepatosplenomegaly Ext: No edema, clubbing or cyanosis. Neuro: Alert and responsive, moving all 4 extremities on command, cranial nerves intact, no focal findings Skin: Multiple areas of bruising and ecchymosis on the arms and legs bilaterally PSYCH: Normal mood, normal affect. (MATHEW RECIO) Course - Laboratory Result Diagrams: 10/12/19 17:31 10/12/19 17:31 <MATHEW RECIO - Last Filed: 10/12/19 18:38> - Laboratory Result Diagrams: 10/12/19 17:31 10/12/19 17:31 - EKG Interpretation by N[place] EKG shows normal: Sinus rhythm Rate: Normal Rhythm: NSR - NSR Nl [place] [address] elevation or depression my interpreta tion. <TEJINDER LOYA - Last Filed: 10/12/19 21:09> - Laboratory Result Diagrams: 10/12/19 17:31 10/12/19 17:31 <ESVIN VARGAS - Last Filed: 10/13/19 05:55> - Laboratory Result Diagrams: 10/12/19 17:31 10/12/19 17:31 <MARIAN LOVE - Last Filed: 10/13/19 09:52> - Re-evaluation Re-evalutation: 10/12/19 18:38 Patient has more comfortable, requesting food, labs are pending. She has had a history of syncope. Today low O2 sat. I discussed the patient with Dr. Loya he will assume her care. (MATHEW RECIO) 10/12/19 21:09 [facility] Pt received from Dr. Recio in turnover awaiting remainder of workup - blood work is not returned. Elderly frail female with recurrent syncope and resp failure was to have O2 set up at home but as of yet it has not been. Pt is alert and saturating 99% on room air. No alteration in her mental status or headache or nausea noted here. She does have known carotid disease but is not a candidate for carotid procedure reportedly. Pt tells me she is fine to stay for O2 to be set up. She will stay here until tomorrow and we will have social work establish home O2 for her. I have discussed with the hospitalist and he would prefer the pt to wait in the ED for the O2 to be set up. We can accomidate that request. (TEJINDER LOYA) 10/13/19 0300 Took over care of this patient from Dr. Loya. Patient apparently has a history of syncope and was recently admitted. History of chronic hypoxia and was supposed to have oxygen set up at home. Patient was found after another fall today and oxygen saturation was found to be 78% on room air. She does still have oxygen at home. Otherwise no concerns apparently. Patient is resting comfortably on nasal cannula. Social work will see the patient and arrange for oxygen at home. 10/13/19 0400 Informed by nursing staff that patient has a headache. Recent fall and on Eliquis. Head CT ordered. 10/13/19 05:58 No acute findings on CT head. Care will be transitioned to the oncoming daytime physician, pending social work consult. (ESVIN VARGAS) - Vital Signs Vital signs: Temp Pulse Resp BP Pulse Ox 97.9 F 71 18 109/60 94 10/13/19 09:21 10/13/19 09:21 10/13/19 09:21 10/13/19 09:21 10/13/19 09:21 - Laboratory Laboratory results interpreted by me: 10/12/19 10/12/19 10/12/19 15:21 17:31 17:31 WBC 10.9 H RDW 17.6 H Band Neutrophils % 1 L Metamyelocytes % 2 H Abs Neuts (Manual) 8.8 H BUN 29 H Est GFR ( Amer) 52 L Est GFR (MDRD) Non-Af 43 L Glucose 188 H POC Glucose 161 H AST 86 H ALT 88 H Creatine Kinase 26 L NT-Pro-B Natriuret Pep 10/12/19 17:31 WBC RDW Band Neutrophils % Metamyelocytes % Abs Neuts (Manual) BUN Est GFR ( Amer) Est GFR (MDRD) Non-Af Glucose POC Glucose AST ALT Creatine Kinase NT-Pro-B Natriuret Pep 877 H Discharge <MATHEW RECIO - Last Filed: 10/12/19 18:38> <TEJINDER LOYA - Last Filed: 10/12/19 21:09> <ESVIN VARGAS - Last Filed: 10/13/19 05:55> <MARIAN LOVE - Last Filed: 10/13/19 09:52> - Discharge Clinical Impression: Low O2 saturation Episode of syncope Qualifiers: Syncope type: unspecified Qualified Code(s): R55 - Syncope and collapse Condition: Stable Disposition: HOME, SELF-CARE Instructions: Near Syncopal Episode ([facility]), Syncopal Episode ([facility]) Additional Instructions: See your doctor in follow up at 130 pm today.. Rest. Please return here for any problems or any concerns.
--- NOTE | 2019-10-12 17:06 | RADIOLOGY REPORT (SQ) ---
EXAM DESCRIPTION: CHEST SINGLE VIEW IMAGES COMPLETED DATE/TIME: 10/12/2019 4:50 pm REASON FOR STUDY: Shortness of breath COMPARISON: 09/21/2019 TECHNIQUE: Single frontal radiographic view of the chest acquired. NUMBER OF VIEWS: One view. LIMITATIONS: None. FINDINGS: LUNGS AND PLEURA: No pneumothorax. Similar bibasilar subsegmental atelectasis -scarring, left greater than right. No consolidation or pleural effusion. MEDIASTINUM AND HILAR STRUCTURES: Stable. HEART AND VASCULAR STRUCTURES: Stable. BONES: No acute findings. HARDWARE: None in the chest. OTHER: No other significant finding. IMPRESSION: Similar bibasilar subsegmental atelectasis -scarring, left greater than right. No conso lidation or pleural effusion. TECHNICAL DOCUMENTATION: JOB ID: [id number] 2010 [employer]- All Rights Reserved Reading location - IP/workstation name: [email or web address] (formerly [employer])
[2019-10-12 18:04] LABS: HEMATOCRIT 37.1 % (36.0-47.0); HEMOGLOBIN 12.4 g/dL (12.0-15.5); MEAN CORPUSCULAR HEMOGLOBIN 29.3 pg (27.0-33.4); MEAN CORPUSCULAR HGB CONC 33.4 g/dL (32.0-36.0); MEAN CORPUSCULAR VOLUME 88 fl (80-97); PLATELET COUNT 311 10^3/uL (150-450); RED BLOOD COUNT 4.23 10^6/uL (3.72-5.28); RED CELL DISTRIBUTION WIDTH 17.6 % (11.5-14.0); WHITE BLOOD COUNT 10.9 10^3/uL (4.0-10.5)
[2019-10-12 18:29] LABS: CREATINE KINASE MB 2.12 ng/mL (<4.55); TROPONIN I 0.024 ng/mL
[2019-10-12 18:44] LABS: ALBUMIN 3.5 g/dL (3.5-5.0); ALKALINE PHOSPHATASE 123 U/L (38-126); ANION GAP 7 (5-19); ASPARTATE AMINO TRANSFERASE 86 U/L (14-36); BILIRUBIN,TOTAL 0.3 mg/dL (0.2-1.3); BLOOD UREA NITROGEN 29 mg/dL (7-20); CALCIUM 9.1 mg/dL (8.4-10.2); CARBON DIOXIDE 28 mmol/L (22-30); CHLORIDE 103 mmol/L (98-107); CREATINE KINASE 26 U/L (30-135); GLUCOSE 188 mg/dL (75-110); POTASSIUM 4.3 mmol/L (3.6-5.0); TOTAL PROTEIN 6.3 g/dL (6.3-8.2)
[2019-10-12 18:50] LABS: ABSOLUTE LYMPHOCYTES# (MANUAL) 1.5 10^3/uL (0.5-4.7); ABSOLUTE MONOCYTES # (MANUAL) 0.4 10^3/uL (0.1-1.4); BAND NEUTROPHILS % (MANUAL) 1 % (3-5); BASOPHILS % (MANUAL) 1 % (0-2); EOSINOPHILS % (MANUAL) 0 % (0-6); LYMPHOCYTES % (MANUAL) 14 % (13-45); METAMYELOCYTES % (MANUAL) 2 % (0-1); MONOCYTES % (MANUAL) 4 % (3-13); POIKILOCYTOSIS SLIGHT; SEGMENTED NEUTROPHILS % (MAN) 78 % (42-78); TOTAL CELLS COUNTED 100
[2019-10-12 18:51] LABS: ANISOCYTOSIS 1+; PLATELET CLUMPS PRESENT; PLATELET COMMENT ADEQUATE; PLATELET GIANT PRESENT
--- NOTE | 2019-10-12 21:01 | EKG REPORT ---
SEVERITY:- ABNORMAL ECG - SINUS RHYTHM PROBABLE INFERIOR INFARCT, AGE INDETERMINATE BORDERLINE PROLONGED QT INTERVAL : Confirmed by: Munir Lopez MD 12-Oct-2019 21:00:30
[2019-10-12] MEDS ORDERED: ACETAMINOPHEN 325 MG TABLET PO ONE (22:01)
[2019-10-12] MEDS ORDERED: ACETAMINOPHEN 325 MG TABLET ONE (22:03)
[2019-10-13] MEDS ORDERED: ACETAMINOPHEN 325 MG TABLET PO ONE (04:22)
--- NOTE | 2019-10-13 05:08 | RADIOLOGY REPORT (SQ) ---
EXAM DESCRIPTION: CT HEAD WITHOUT IV CONTRAST COMPLETED DATE/TME: 10/13/2019 04:21 CLINICAL HISTORY: fall, headache COMPARISON: 09/21/2019 TECHNIQUE: Axial CT of the head obtained from the skull apex to the skull base without contrast. FINDINGS: No acute intracranial hemorrhage identified. No mass, mass effect, shift of the midline, abnormal extra-axial fluid collection or CT evidence of acute ischemic change identified. The ventricular system and sulcal spaces are mildly enlarged compatible with mild cerebral atrophy. Scattered areas of hypodensity throughout the supratentorial white matter are nonspecific and may be related to chronic small vessel ischemic change. 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 Opacities in the mastoid air cells. Paranasal sinuses are relatively well aerated. Postoperative change of the right calvarium. No skull fracture identified. Visualized orbits and globes are unremarkable. Atherosclerotic calcification of the intracranial internal carotid arteries. IMPRESSION: 1. No acute intracranial abnormality by CT criteria. This exam was performed according to our departmental dose-optimization program, which includes automated exposure control, adjustment of the mA and/or kV according to patient size and/or use of iterative reconstruction technique.
[2019-10-13 09:23] VITALS: BP 109/60
--- NOTE | 2019-10-13 09:51 | ER Document Report ---
Doctor's Note Notes: 10/13/19 09:50 I reexamined patient just now. She is resting comfortably in the bed with no significant complaints. Vital signs are stable with oxygen saturation of 94% on room air. Her respirations are unlabored. She is talking to me in complete sentences. We have been able to arrange an appointment with her primary care physician at 1:30 PM today. Both her and her have been informed of this and they are okay with this plan. We did attempt through the life care planner to have home oxygen arranged from the emergency department but we are unable to do this. Therefore we have arranged for the patient to see her primary at 130.
[2019-10-13 10:25] LABS: APPEARANCE,URINE SLIGHTLY-CLOUDY; BILIRUBIN,URINE NEGATIVE (NEGATIVE); COLOR,URINE YELLOW; GLUCOSE, URINE NEGATIVE (NEGATIVE); KETONES,URINE NEGATIVE (NEGATIVE); PROTEIN,URINE 100 mg/dL (NEGATIVE); URINE SPECIFIC GRAVITY 1.026; UROBILINOGEN,URINE NEGATIVE mg/dL (<2.0)
== END 2019-10-13 10:18 | disposition home or self-care (01) ==
LOC: ER 15:11
DX: R55 Syncope and collapse (principal); J44.9 Chronic obstructive pulmonary disease, unspecified; R06.02 Shortness of breath; R51 Headache; R58 Hemorrhage, not elsewhere classified; I25.10 Atherosclerotic heart disease of native coronary artery without angina pectoris; I48.91 Unspecified atrial fibrillation; I10 Essential (primary) hypertension; Z79.899 Other long term (current) drug therapy; Z79.01 Long term (current) use of anticoagulants
CPT/HCPCS: 93005; 99285; 36415; 82553; 82962; 82550; 85025; 80053; 81001; 84484; 83880; 71045; 70450; 93010; A9270 ×2

== ENCOUNTER 2020-01-05 11:23 | Inpatient (IN) | payer MEDICARE ==
[2020-01-05] MEDS ORDERED: NORMAL SALINE 1000 ML 1,000 ML IV ONE ×2 (12:24)
[2020-01-05] MEDS ORDERED: CEFEPIME 2 GM/D5W RTU 2 GM/50 ML RTUPB IV ONE (12:24)
--- NOTE | 2020-01-05 12:33 | RADIOLOGY REPORT (SQ) ---
EXAM DESCRIPTION: CHEST SINGLE VIEW IMAGES COMPLETED DATE/TIME: 01/05/2020 12:15 pm REASON FOR STUDY: cough COMPARISON: 10/12/2019 EXAM PARAMETERS: NUMBER OF VIEWS: One view. TECHNIQUE: Single frontal radiographic view of the chest acquired. RADIATION DOSE: NA LIMITATIONS: None. FINDINGS: LUNGS AND PLEURA: Chronic scarring with ipsilateral volume loss left lower lobe. Calcifie d pleural plaques on the right. MEDIASTINUM AND HILAR STRUCTURES: No masses. Contour normal. HEART AND VASCULAR STRUCTURES: Heart normal in size. Normal vasculature. BONES: No acute findings. HARDWARE: None in the chest. OTHER: No other significant finding. IMPRESSION: NO ACUTE RADIOGRAPHIC FINDING IN THE CHEST. TECHNICAL DOCUMENTATION: JOB ID: [id number] 2010 [employer]- All Rights Reserved Reading location - IP/workstation name: [email or web address]
[2020-01-05 13:11] LABS: ABSOLUTE LYMPHOCYTES (AUTO) 1.2 10^3/uL (0.5-4.7); ABSOLUTE MONOCYTES (AUTO) 0.9 10^3/uL (0.1-1.4); BASOPHILS % (AUTO) 0.3 % (0-2); EOSINOPHILS % (AUTO) 0.1 % (0-6); HEMATOCRIT 32.9 % (36.0-47.0); HEMOGLOBIN 10.5 g/dL (12.0-15.5); LYMPHOCYTES % (AUTO) 9.9 % (13-45); MEAN CORPUSCULAR HEMOGLOBIN 25.6 pg (27.0-33.4); MEAN CORPUSCULAR HGB CONC 31.9 g/dL (32.0-36.0); MEAN CORPUSCULAR VOLUME 80 fl (80-97); MONOCYTES % (AUTO) 7.6 % (3-13); PLATELET COUNT 240 10^3/uL (150-450); RED BLOOD COUNT 4.12 10^6/uL (3.72-5.28); RED CELL DISTRIBUTION WIDTH 18.3 % (11.5-14.0); SEGMENTED NEUTROPHILS % (AUTO) 82.1 % (42-78); TOTAL CELLS COUNTED % (AUTO) 100 %; WHITE BLOOD COUNT 12.2 10^3/uL (4.0-10.5)
[2020-01-05 13:35] LABS: VENOUS BLOOD BASE EXCESS -0.5 mmol/L; VENOUS BLOOD HCO3 26.3 mmol/L (20-32); VENOUS BLOOD PH 7.32 (7.30-7.42)
[2020-01-05 13:36] LABS: ALBUMIN 3.7 g/dL (3.5-5.0); ALKALINE PHOSPHATASE 135 U/L (38-126); ANION GAP 11 (5-19); BILIRUBIN,DIRECT 0.5 mg/dL (0.0-0.4); BILIRUBIN,TOTAL 0.6 mg/dL (0.2-1.3); BLOOD UREA NITROGEN 24 mg/dL (7-20); CALCIUM 9.2 mg/dL (8.4-10.2); CARBON DIOXIDE 24 mmol/L (22-30); CHLORIDE 104 mmol/L (98-107); GLUCOSE 113 mg/dL (75-110); POTASSIUM 4.2 mmol/L (3.6-5.0); TOTAL PROTEIN 6.5 g/dL (6.3-8.2)
[2020-01-05 13:46] LABS: ASPARTATE AMINO TRANSFERASE 916 U/L (14-36)
--- NOTE | 2020-01-05 14:22 | ER Document Report ---
ED General - General Chief Complaint: Syncope Stated Complaint: WEAKNESS/COUGH/SYNCOPE Time Seen by Provider: 01/05/20 11:55 Mode of Arrival: Medic Information source: Patient TRAVEL OUTSIDE OF THE [place] IN LAST 30 DAYS: No - HPI Notes: Patient is brought in by ambulance secondary to weakness cough and congestion. She states this is been going on for 2 to 3 days. Is been constant. Is severe. Is worse with exertion and better with rest. The weakness does radiate throughout her body. She states that her daughter is positive for COVID and that they have been sleeping in the same bed. She now has similar symptoms of generalized body aches cough and congestion. No vomiting or diarrhea. - Related Data Allergies/Adverse Reactions: No Known Allergies Allergy (Verified 09/21/19 18:21) Past Medical History - General Information source: Patient - Social History Smoking Status: Former Smoker Frequency of alcohol use: None Drug Abuse: None Family History: Reviewed & Not Pertinent, CAD - Past Medical History Cardiac Medical History: Reports: Hx Atrial Fibrillation, Hx Coronary Artery Disease, Hx DVT, Hx Hypertension, Hx Peripheral Vascular Disease Pulmonary Medical History: Reports: Hx COPD GI Medical History: Reports: Hx Gastroesophageal Reflux Disease Psychiatric Medical History: Denies: Hx Depression Past Surgical History: Reports: Hx Bowel Surgery, Hx Carotid Endarterectomy, Other - Bowel resection due to peritonitis Review of Systems - Review of Systems Constitutional: Chills, Malaise, Weakness Cardiovascular: denies: Chest pain, Palpitations Respiratory: Cough, Short of breath -: Yes All other systems reviewed and negative Physical Exam - Vital signs Vitals: Resp BP Pulse Ox 25 H 85/59 L 92 01/05/20 11:32 01/05/20 11:32 01/05/20 11:32 Interpretation: Hypotensive - General General appearance: Alert In distress: None - HEENT Head: Normocephalic, Atraumatic Eyes: Normal Pupils: PERRL - Respiratory Respiratory status: No respiratory distress Chest status: Nontender Breath sounds: Normal Chest palpation: Normal - Cardiovascular Rhythm: Regular Heart sounds: Normal auscultation Murmur: No Pulses: Decreased: Radial - Bilateral - Abdominal Inspection: Normal Distension: No distension Bowel sounds: Normal Tenderness: Nontender Organomegaly: No organomegaly - Back Back: Normal, Nontender - Extremities General upper extremity: Normal inspection, Nontender, Normal color, Normal ROM, Normal temperature General lower extremity: Normal inspection, Nontender, Normal color, Normal ROM, Normal temperature, Normal weight bearing. No: Audelia's sign - Neurological Neuro grossly intact: Yes Cognition: Normal Andres Coma Scale Eye Opening: Spontaneous [place] Coma Scale Verbal: Oriented [place] Coma Scale Motor: Obeys Commands [place] Coma Scale Total: 15 Speech: Normal Motor strength normal: LUE, RUE, LLE, RLE Sensory: Normal - Psychological Associated symptoms: Normal affect, Normal mood - Skin Skin Temperature: Warm Skin Moisture: Dry Skin Color: Normal Course - Re-evaluation Re-evalutation: 01/05/20 14:20 Patient presents with weakness and hypotension. She does have a daughter who lives in the same house and actually sleeps in the same bed who is positive for COVID. Patient symptoms seem to be consistent with COVID as she has a viral hepatitis by labs, she has cough and congestion, she has complaints of weakness malaise and body aches. She has a mildly elevated lactate at this time fluid resuscitation has been ordered. She is also been given a dose of antibiotics until the etiology of her hypotension and elevated lactic acid is more clear. - Vital Signs Vital signs: Temp Pulse Resp BP Pulse Ox 97.7 F 21 H 106/61 100 01/05/20 11:40 01/05/20 13:11 01/05/20 13:11 01/05/20 13:11 - Laboratory Result Diagrams: 01/05/20 12:45 01/05/20 12:45 Laboratory results interpreted by me: 01/05/20 01/05/20 01/05/20 12:45 12:45 12:45 WBC 12.2 H Hgb 10.5 L Hct 32.9 L MCH 25.6 L MCHC 31.9 L RDW 18.3 H Lymph % (Auto) 9.9 L Absolute Neuts (auto) 10.0 H Seg Neutrophils % 82.1 H BUN 24 H Est GFR ( Amer) 57 L Est GFR (MDRD) Non-Af 47 L Glucose 113 H POC Glucose Lactic Acid 2.9 H Direct Bilirubin 0.5 H AST 916 H ALT 723 H Alkaline Phosphatase 135 H 01/05/20 13:02 WBC Hgb Hct MCH MCHC RDW Lymph % (Auto) Absolute Neuts (auto) Seg Neutrophils % BUN Est GFR ( Amer) Est GFR (MDRD) Non-Af Glucose POC Glucose 119 H Lactic Acid Direct Bilirubin AST ALT Alkaline Phosphatase - Diagnostic Test Radiology reviewed: Image reviewed, Reports reviewed - EKG Interpretation by Me EKG shows normal: Sinus rhythm Rate: Normal - 66 Rhythm: NSR [facility]/QRS: No: Right axis deviation, Left axis deviation Critical Care Note - Critical Care Note Total time excluding time spent on procedures (mins): 60 Comments: Approximately 60 minutes of critical care time were spent on this patient with hypotension, lactic acidosis and hepatitis. This included multiple reassessments. This included reviewing old records. Included talking with consultants. And included reviewing imaging and laboratories. Discharge - Discharge Clinical Impression: Person under investigation for COVID-19, Lactic acidosis Viral hepatitis Qualifiers: Viral hepatitis type: unspecified Viral hepatitis chronicity: acute Qualified Code(s): B17.9 - Acute viral hepatitis, unspecified Hypotension Qualifiers: Hypotension type: hypotension due to hypovolemia Qualified Code(s): I95.89 - Other hypotension; E86.1 - Hypovolemia Condition: Serious Disposition: ADMITTED INPATIENT Admitting Provider: Alee (Hospitalist) Unit Admitted: [facility]
[2020-01-05] MEDS ORDERED: NORMAL SALINE 500 ML IV ONE (14:23)
[2020-01-05 14:46] LABS: APPEARANCE,URINE CLEAR; BILIRUBIN,URINE NEGATIVE (NEGATIVE); COLOR,URINE STRAW; GLUCOSE, URINE NEGATIVE (NEGATIVE); KETONES,URINE NEGATIVE (NEGATIVE); LEUKOCYTE ESTERASE,URINE NEGATIVE (NEGATIVE); NITRITE,URINE NEGATIVE (NEGATIVE); PROTEIN,URINE NEGATIVE (NEGATIVE); URINE SPECIFIC GRAVITY 1.006; UROBILINOGEN,URINE NEGATIVE mg/dL (<2.0)
[2020-01-05] MEDS ORDERED: MAGNESIUM HYDROXIDE SUSP 30 ML UDCUP PO PRN (15:09)
[2020-01-05] MEDS ORDERED: MAG HYDROX/AL HYDROX/SIMETH SUSP 30 ML UDCUP PO PRN (15:09)
[2020-01-05] MEDS ORDERED: TEMAZEPAM 7.5 MG CAPSULE PO PRN (15:09)
[2020-01-05] MEDS ORDERED: IPRATROPIUM/ALBUTEROL 0.5-2.5 MG/3 ML AMPUL NEB PRN (15:09)
[2020-01-05] MEDS ORDERED: AZITHROMYCIN 250 MG TABLET PO ONE (15:09)
[2020-01-05] MEDS ORDERED: ACETAMINOPHEN 325 MG TABLET PO PRN (15:09)
[2020-01-05] MEDS ORDERED: ONDANSETRON HCL INJ/PF 4 MG/2 ML SDV IV PRN (15:09)
[2020-01-05] MEDS: DEXAMETHASONE SOD PHOS INJ 10 MG/1 ML VIAL IV SCH (16:28)
[2020-01-05] MEDS: ASPIRIN 81 MG TABLET, ENT COATED PO SCH (16:28)
[2020-01-05] MEDS: VENLAFAXINE HCL 75 MG TABLET PO SCH (16:28)
[2020-01-05] MEDS: ZINC SULFATE 220 MG CAPSULE PO SCH (16:28)
[2020-01-05] MEDS: CHOLECALCIFEROL (D3) 1,000 UNIT (25 MCG) TABLET PO SCH (16:28)
[2020-01-05 17:21] LABS: A TYPE INFLUENZA AG NEGATIVE (NEGATIVE); B INFLUENZA AG NEGATIVE (NEGATIVE)
[2020-01-05] MEDS: MIDODRINE HCL 5 MG TABLET PO SCH (18:24)
[2020-01-05] MEDS: LORAZEPAM 0.5 MG TABLET PO SCH (18:25)
[2020-01-05] MEDS: ASCORBIC ACID 500 MG TABLET PO SCH (18:25)
[2020-01-05] MEDS: AMIODARONE HCL 200 MG TABLET PO SCH (18:26)
--- NOTE | 2020-01-05 19:07 | PDOC H&P ---
History of Present Illness Admission Date/PCP: 01/05/20 15:40 History of Present Illness: NICOLE DIOP is a 79 year old female with past medical history of atrial fibrillation, CAD, history of carotid endarterectomy, dementia, hypertension, history of deep vein thrombosis, PVD, anxiety, who is DNR and living with her daughter, presenting to ED complaining of weakness, cough and congestion for the last 2 to 3 days, cough is productive, nonbloody, denies any fever or any chills, exposed to her daughter who has been diagnosed with COVID-19 infection, denies any chest pain, nausea, vomiting, diarrhea, constipation or any urinary symptoms. ED she was noted to be hypotensive, with mildly elevated lactic acid, elevated liver enzymes, elevated lactic dehydrogenase Past Medical History Cardiac Medical History: Reports: Atrial Fibrillation, Coronary Artery Disease, DVT, Hypertension, Peripheral Vascular Disease Pulmonary Medical History: Reports: Chronic Obstructive Pulmonary Disease (COPD) GI Medical History: Reports: Gastroesophageal Reflux Disease Psychiatric Medical History: Denies: Depression Past Surgical History Past Surgical History: Reports: Carotid Endarterectomy, Other - Bowel resection due to peritonitis Social History Smoking Status: Former Smoker Frequency of Alcohol Use: None Hx Recreational Drug Use: No Drugs: None Hx Prescription Drug Abuse: No Family History Family History: Reviewed & Not Pertinent, CAD Parental Family History Reviewed: Yes Children Family History Reviewed: Yes Sibling(s) Family History Reviewed.: Yes Medication/Allergy Home Medications: Amiodarone HCl [Cordarone 200 mg Tablet] 200 mg PO Q12 09/21/19 Apixaban [Eliquis 5 mg Tablet] 5 mg PO BID 09/21/19 Donepezil HCl [Aricept 5 mg Tablet] 5 mg PO QHS 09/21/19 Esomeprazole Magnesium 40 mg PO BID 09/21/19 Furosemide [Lasix 40 mg Tablet] 40 mg PO BID 09/21/19 Hydrocortisone [Cortef 10 mg Tablet] 50 mg PO DAILY 09/21/19 Lorazepam 0.5 mg PO BID@08,14 09/21/19 Lorazepam 1 mg PO QHS 09/21/19 Midodrine HCl 10 mg PO TID 09/21/19 Potassium Chloride [Klor-Con 10 Meq Tablet ER] 20 meq PO BID 09/21/19 Pravastatin Sodium 20 mg PO QHS 09/21/19 Venlafaxine HCl ER [Effexor Xr 75 mg Cap.sr] 75 mg PO DAILY 09/21/19 Venlafaxine HCl [Venlafaxine HCl ER] 150 mg PO DAILY 09/21/19 Amoxicillin 1 tab PO TID 3 Days #9 tab 09/24/19 Allergies/Adverse Reactions: No Known Allergies Allergy (Verified 09/21/19 18:21) Review of Systems Review of Systems: as per hpi Physical Exam Vital Signs: Temp Pulse Resp BP Pulse Ox 97.7 F 24 H 121/76 98 01/05/20 11:40 01/05/20 17:21 01/05/20 17:21 01/05/20 17:21 Intake & Output 01/04/20 01/05/20 01/06/20 06:59 06:59 06:59 Intake Total 2550 Output Total 1100 Balance 1450 Weight 68.3 kg General appearance: PRESENT: no acute distress, well-developed, well-nourished, other Head exam: PRESENT: atraumatic, normocephalic Neck exam: ABSENT: carotid bruit, JVD, lymphadenopathy, thyromegaly Respiratory exam: PRESENT: clear to auscultation bhupendra. ABSENT: rales, rhonchi, wheezes Cardiovascular exam: PRESENT: RRR. ABSENT: diastolic murmur, rubs, systolic murmur GI/Abdominal exam: PRESENT: normal bowel sounds, soft. ABSENT: distended, guarding, mass, organolmegaly, rebound, tenderness Neurological exam: PRESENT: alert, awake, oriented to person, oriented to place, oriented to time, CN II-XII grossly intact. ABSENT: motor sensory deficit Results Laboratory Results: 01/05/20 12:45 01/05/20 12:45 01/05/20 01/05/20 01/05/20 12:45 12:45 12:45 WBC 12.2 H RBC 4.12 Hgb 10.5 L Hct 32.9 L MCV 80 MCH 25.6 L MCHC 31.9 L RDW 18.3 H Plt Count 240 Seg Neutrophils % 82.1 H VBG pH 7.32 VBG pCO2 52.0 VBG HCO3 26.3 VBG Base Excess -0.5 Sodium 139.4 Potassium 4.2 Chloride 104 Carbon Dioxide 24 Anion Gap 11 BUN 24 H Creatinine 1.11 Est GFR ( Amer) 57 L Glucose 113 H Lactic Acid Calcium 9.2 Ferritin Total Bilirubin 0.6 AST 916 H Alkaline Phosphatase 135 H Total Protein 6.5 Albumin 3.7 Urine Color Urine Appearance Urine pH Ur Specific [place] Urine Protein Urine Glucose (UA) Urine Ketones Urine Blood Urine Nitrite Ur Leukocyte Esterase Urine WBC (Auto) Urine RBC (Auto) 01/05/20 01/05/20 01/05/20 12:45 12:45 14:30 WBC RBC Hgb Hct MCV MCH MCHC RDW Plt Count Seg Neutrophils % VBG pH VBG pCO2 VBG HCO3 VBG Base Excess Sodium Potassium Chloride Carbon Dioxide Anion Gap BUN Creatinine Est GFR ( Amer) Glucose Lactic Acid 2.9 H Calcium Ferritin 120.00 Total Bilirubin AST Alkaline Phosphatase Total Protein Albumin Urine Color STRAW Urine Appearance CLEAR Urine pH 6.0 Ur Specific [place] 1.006 Urine Protein NEGATIVE Urine Glucose (UA) NEGATIVE Urine Ketones NEGATIVE Urine Blood NEGATIVE Urine Nitrite NEGATIVE Ur Leukocyte Esterase NEGATIVE Urine WBC (Auto) 1 Urine RBC (Auto) 0 01/05/20 12:45 Troponin I 0.019 Impressions: Chest X-Ray 01/05/20 00:00 IMPRESSION: NO ACUTE RADIOGRAPHIC FINDING IN THE CHEST. Assessment and Plan - Diagnosis (1) Systemic inflammatory response syndrome Is this a current diagnosis for this admission?: Yes Plan: Presented with hypotension, elevated lactic acid, evaded liver enzymes. Admit to IMCU, cautious volume resuscitation guided by volume status, empiric IV antibiotics, urine and blood culture. Of note patient does have history of hypertension and is taking midodrine at home. (2) Atrial fibrillation Qualifiers: Atrial fibrillation type: longstanding persistent Qualified Code(s): I48.11 - Longstanding persistent atrial fibrillation Is this a current diagnosis for this admission?: Yes Plan: History of atrial fibrillation. On amiodarone and Eliquis. Resume amiodarone. Hold Eliquis as patient is on full dose anticoagulation for suspicion of COVID-19 infection. Resume Eliquis upon discharge. As needed IV metoprolol. Outpatient PCP and cardiology follow-up. (3) Hypotension Qualifiers: Hypotension type: unspecified hypotension type Qualified Code(s): I95.9 - Hypotension, unspecified Is this a current diagnosis for this admission?: Yes Plan: Hypotension on midodrine. Appears euvolemic. Resume home meds. Monitor vitals. (4) Person under investigation for COVID-19 Is this a current diagnosis for this admission?: Yes Plan: Patient complaining of generalized ache and fatigue, is afebrile, has elevated liver enzymes, lymphopenia and leukocytosis and positive COVID-19 exposure. Admit to IMCU, empiric broad-spectrum IV antibiotics, convalescent plasma transfusion, remdesivir, therapeutic Lovenox, duo nebs. Of note patient has borderline QT prolongation and also on amiodarone. We will switch azithromycin with doxycycline. (5) H/O carotid endarterectomy Is this a current diagnosis for this admission?: Yes Plan: Resume home meds. Outpatient PCP and neurology follow-up. (6) PVD (peripheral vascular disease) Is this a current diagnosis for this admission?: Yes Plan: Resume home meds. Outpatient PCP follow-up. (7) Dementia Qualifiers: Dementia type: unspecified type Is this a current diagnosis for this admission?: Yes Plan: Takes donepezil at home. Resume home meds. Supportive measures. - Time Time Spent with patient: 35 or more minutes Medications reviewed and adjusted accordingly: Yes Anticipated Discharge Disposition: Home with Home Health Anticipated Discharge Timeframe: within 72 hours
--- NOTE | 2020-01-05 19:45 | EKG REPORT ---
SEVERITY:- BORDERLINE ECG - SINUS RHYTHM BORDERLINE T ABNORMALITIES, ANTERIOR LEADS BORDERLINE PROLONGED QT INTERVAL : Confirmed by: George Lynch 05-Jan-2020 19:45:24
[2020-01-05] MEDS: NORMAL SALINE 1000 ML 1,000 ML IV PRN (20:25)
[2020-01-05] MEDS: OXYCODONE-ACETAMINOPHEN 5-325 MG TABLET PO PRN (20:45)
[2020-01-05] MEDS: ENOXAPARIN SODIUM INJ 60 MG/0.6 ML DISP.SYRIN SUBCUT SCH (21:41)
[2020-01-05] MEDS: ATORVASTATIN CALCIUM 40 MG TABLET PO SCH (21:41)
[2020-01-05] MEDS: FAMOTIDINE 20 MG TABLET PO SCH (21:41)
[2020-01-05] MEDS: DONEPEZIL HCL 5 MG TABLET PO SCH (21:41)
[2020-01-05] MEDS: DOXYCYCLINE HYCLATE 100 MG in DEXTROSE 5%-WATER 250 ML IV SCH (21:42)
[2020-01-06] MEDS: OXYCODONE-ACETAMINOPHEN 5-325 MG TABLET PO PRN ×3 (05:04→19:25)
[2020-01-06] MEDS: LORAZEPAM 0.5 MG TABLET PO SCH ×2 (05:05→17:59)
[2020-01-06 07:30] LABS: ABSOLUTE LYMPHOCYTES (AUTO) 0.7 10^3/uL (0.5-4.7); ABSOLUTE MONOCYTES (AUTO) 0.3 10^3/uL (0.1-1.4); ABSOLUTE NEUT (AUTO) 6.2 10^3/uL (1.7-8.2); BASOPHILS % (AUTO) 0.1 % (0-2); HEMATOCRIT 27.9 % (36.0-47.0); HEMOGLOBIN 9.2 g/dL (12.0-15.5); LYMPHOCYTES % (AUTO) 9.9 % (13-45); MEAN CORPUSCULAR HEMOGLOBIN 25.7 pg (27.0-33.4); MEAN CORPUSCULAR HGB CONC 32.8 g/dL (32.0-36.0); MEAN CORPUSCULAR VOLUME 78 fl (80-97); MONOCYTES % (AUTO) 4.7 % (3-13); PLATELET COUNT 235 10^3/uL (150-450); RED BLOOD COUNT 3.56 10^6/uL (3.72-5.28); SEGMENTED NEUTROPHILS % (AUTO) 85.3 % (42-78); TOTAL CELLS COUNTED % (AUTO) 100 %; WHITE BLOOD COUNT 7.3 10^3/uL (4.0-10.5)
[2020-01-06 07:44] LABS: ALKALINE PHOSPHATASE 114 U/L (38-126); ANION GAP 11 (5-19); BILIRUBIN,DIRECT 0.4 mg/dL (0.0-0.4); BILIRUBIN,TOTAL 0.4 mg/dL (0.2-1.3); BLOOD UREA NITROGEN 14 mg/dL (7-20); CALCIUM 8.5 mg/dL (8.4-10.2); CARBON DIOXIDE 21 mmol/L (22-30); CHLORIDE 106 mmol/L (98-107); GLUCOSE 88 mg/dL (75-110); POTASSIUM 3.5 mmol/L (3.6-5.0); TOTAL PROTEIN 5.7 g/dL (6.3-8.2)
[2020-01-06 07:51] LABS: ASPARTATE AMINO TRANSFERASE 770 U/L (14-36)
[2020-01-06 08:20] LABS: APPEARANCE,URINE CLEAR; BILIRUBIN,URINE NEGATIVE (NEGATIVE); COLOR,URINE YELLOW; GLUCOSE, URINE NEGATIVE (NEGATIVE); KETONES,URINE NEGATIVE (NEGATIVE); LEUKOCYTE ESTERASE,URINE NEGATIVE (NEGATIVE); NITRITE,URINE NEGATIVE (NEGATIVE); PROTEIN,URINE 30 mg/dL (NEGATIVE); URINE SPECIFIC GRAVITY 1.012; UROBILINOGEN,URINE NEGATIVE mg/dL (<2.0)
[2020-01-06] MEDS: VENLAFAXINE HCL 75 MG TABLET PO SCH (09:16)
[2020-01-06] MEDS: ENOXAPARIN SODIUM INJ 60 MG/0.6 ML DISP.SYRIN SUBCUT SCH ×2 (09:16→21:41)
[2020-01-06] MEDS: DOCUSATE SODIUM 100 MG CAPSULE PO SCH (09:16)
[2020-01-06] MEDS: ASCORBIC ACID 500 MG TABLET PO SCH ×2 (09:17→17:59)
[2020-01-06] MEDS: MIDODRINE HCL 5 MG TABLET PO SCH ×2 (09:17→17:57)
[2020-01-06] MEDS: CHOLECALCIFEROL (D3) 1,000 UNIT (25 MCG) TABLET PO SCH (09:17)
[2020-01-06] MEDS: ZINC SULFATE 220 MG CAPSULE PO SCH (09:17)
[2020-01-06] MEDS: ASPIRIN 81 MG TABLET, ENT COATED PO SCH (09:17)
[2020-01-06] MEDS: AMIODARONE HCL 200 MG TABLET PO SCH ×2 (09:17→17:59)
[2020-01-06] MEDS: FAMOTIDINE 20 MG TABLET PO SCH ×2 (09:17→21:40)
[2020-01-06] MEDS: DEXAMETHASONE SOD PHOS INJ 10 MG/1 ML VIAL IV SCH (09:18)
[2020-01-06] MEDS: CEFTRIAXONE 1 GM/D5W RTU 1 GM/50 ML RTUPB IV SCH (09:19)
[2020-01-06] MEDS ORDERED: AZITHROMYCIN 250 MG TABLET PO SCH (10:00)
[2020-01-06] MEDS: DOXYCYCLINE HYCLATE 100 MG in DEXTROSE 5%-WATER 250 ML IV SCH ×2 (12:30→21:43)
[2020-01-06] MEDS: NORMAL SALINE 1000 ML 1,000 ML IV PRN (12:50)
--- NOTE | 2020-01-06 16:46 | PDOC PROGRESS REPORT ---
Subjective Progress Note for:: 01/06/20 Subjective:: No adverse events overnight. No new complaints. She is on about 3 L of oxygen now, and says that at home she uses 2 L when she sleeps. Her breathing feels about normal to her at this time. Reason For Visit: SYSTEMIC INFLAMMATORY RESPONSE, HYPOTENSION, Physical Exam Vital Signs: Temp Pulse Resp BP Pulse Ox 97.4 F 68 18 144/66 H 95 01/06/20 15:30 01/06/20 15:30 01/06/20 15:30 01/06/20 15:30 01/06/20 15:30 Intake & Output 01/05/20 01/06/20 01/07/20 06:59 06:59 06:59 Intake Total 2800 1170 Output Total 1700 550 Balance 1100 620 Weight 75.3 kg General appearance: PRESENT: no acute distress, well-developed, well-nourished, other Head exam: PRESENT: atraumatic, normocephalic Neck exam: ABSENT: carotid bruit, JVD, lymphadenopathy, thyromegaly Respiratory exam: PRESENT: clear to auscultation bhupendra. ABSENT: rales, rhonchi, wheezes Cardiovascular exam: PRESENT: RRR. ABSENT: diastolic murmur, rubs, systolic murmur GI/Abdominal exam: PRESENT: normal bowel sounds, soft. ABSENT: distended, guarding, mass, organolmegaly, rebound, tenderness Neurological exam: PRESENT: alert, awake, oriented to person, oriented to place, oriented to time, CN II-XII grossly intact. Results Laboratory Results: 01/06/20 06:19 01/06/20 06:19 01/06/20 01/06/20 01/06/20 06:19 06:19 07:14 WBC 7.3 RBC 3.56 L Hgb 9.2 L Hct 27.9 L MCV 78 L MCH 25.7 L MCHC 32.8 RDW 18.0 H Plt Count 235 Seg Neutrophils % 85.3 H Sodium 137.9 Potassium 3.5 L Chloride 106 Carbon Dioxide 21 L Anion Gap 11 BUN 14 Creatinine 0.74 Est GFR ( Amer) > 60 Glucose 88 Calcium 8.5 Total Bilirubin 0.4 AST 770 H Alkaline Phosphatase 114 Total Protein 5.7 L Albumin 3.0 L Urine Color YELLOW Urine Appearance CLEAR Urine pH 6.0 Ur Specific [place] 1.012 Urine Protein 30 H Urine Glucose (UA) NEGATIVE Urine Ketones NEGATIVE Urine Blood NEGATIVE Urine Nitrite NEGATIVE Ur Leukocyte Esterase NEGATIVE Urine WBC (Auto) 1 Urine RBC (Auto) 1 01/05/20 12:45 Troponin I 0.019 Impressions: Chest X-Ray 01/05/20 00:00 IMPRESSION: NO ACUTE RADIOGRAPHIC FINDING IN THE CHEST. Assessment and Plan - Diagnosis (1) Person under investigation for COVID-19 Is this a current diagnosis for this admission?: Yes (2) Chronic hypoxemic respiratory failure Is this a current diagnosis for this admission?: Yes (3) Atrial fibrillation Qualifiers: Atrial fibrillation type: longstanding persistent Qualified Code(s): I48.11 - Longstanding persistent atrial fibrillation Is this a current diagnosis for this admission?: Yes (4) Hypotension Qualifiers: Hypotension type: unspecified hypotension type Qualified Code(s): I95.9 - Hypotension, unspecified Is this a current diagnosis for this admission?: Yes (5) CAD (coronary artery disease) Qualifiers: Coronary Disease-Associated Artery/Lesion type: unspecified vessel or lesion type Associated angina: without angina Is this a current diagnosis for this admission?: Yes (6) PVD (peripheral vascular disease) Is this a current diagnosis for this admission?: Yes (7) Debility Is this a current diagnosis for this admission?: Yes - Plan Summary Summary: She continues to receive empiric Decadron and antibiotics for potential bacterial pneumonia. She is not on antiviral therapy because her coronavirus testing is pending. We continue her home treatments for her comorbid conditions. She was on Midrin for low blood pressure, but her blood pressures have been elevated so this medication is on hold for the time being. - Time Time Spent with patient: 15-24 minutes Anticipated Discharge Disposition: Home with Home Health Anticipated Discharge Timeframe: Pending clinical course
[2020-01-06] MEDS: ATORVASTATIN CALCIUM 40 MG TABLET PO SCH (21:40)
[2020-01-06] MEDS: DONEPEZIL HCL 5 MG TABLET PO SCH (21:40)
[2020-01-07] MEDS: NORMAL SALINE 1000 ML 1,000 ML IV PRN ×2 (03:15→21:00)
[2020-01-07] MEDS: LORAZEPAM 0.5 MG TABLET PO SCH ×2 (05:20→19:14)
[2020-01-07 06:54] LABS: ABSOLUTE LYMPHOCYTES (AUTO) 1.1 10^3/uL (0.5-4.7); ABSOLUTE MONOCYTES (AUTO) 0.6 10^3/uL (0.1-1.4); ABSOLUTE NEUT (AUTO) 6.5 10^3/uL (1.7-8.2); BASOPHILS % (AUTO) 0.1 % (0-2); HEMATOCRIT 27.8 % (36.0-47.0); HEMOGLOBIN 9.2 g/dL (12.0-15.5); MEAN CORPUSCULAR HEMOGLOBIN 25.9 pg (27.0-33.4); MEAN CORPUSCULAR HGB CONC 33.3 g/dL (32.0-36.0); MEAN CORPUSCULAR VOLUME 78 fl (80-97); MONOCYTES % (AUTO) 7.7 % (3-13); PLATELET COUNT 235 10^3/uL (150-450); RED BLOOD COUNT 3.57 10^6/uL (3.72-5.28); SEGMENTED NEUTROPHILS % (AUTO) 79.2 % (42-78); TOTAL CELLS COUNTED % (AUTO) 100 %; WHITE BLOOD COUNT 8.2 10^3/uL (4.0-10.5)
[2020-01-07 07:03] LABS: ALBUMIN 2.9 g/dL (3.5-5.0); ALKALINE PHOSPHATASE 116 U/L (38-126); ANION GAP 8 (5-19); ASPARTATE AMINO TRANSFERASE 472 U/L (14-36); BILIRUBIN,DIRECT 0.4 mg/dL (0.0-0.4); BILIRUBIN,TOTAL 0.4 mg/dL (0.2-1.3); BLOOD UREA NITROGEN 12 mg/dL (7-20); CALCIUM 8.7 mg/dL (8.4-10.2); CARBON DIOXIDE 23 mmol/L (22-30); CHLORIDE 105 mmol/L (98-107); GLUCOSE 79 mg/dL (75-110); POTASSIUM 3.3 mmol/L (3.6-5.0); TOTAL PROTEIN 5.6 g/dL (6.3-8.2)
--- NOTE | 2020-01-07 10:15 | RADIOLOGY REPORT (SQ) ---
EXAM DESCRIPTION: CHEST SINGLE VIEW IMAGES COMPLETED DATE/TIME: 01/07/2020 9:54 am REASON FOR STUDY: worsening hypoxemia COMPARISON: 01/05/2020. EXAM PARAMETERS: NUMBER OF VIEWS: One view. TECHNIQUE: Single frontal radiographic view of the chest acquired. RADIATION DOSE: NA LIMITATIONS: None. FINDINGS: LUNGS AND PLEURA: Elevated left hemidiaphragm. Scarring in the left lung base. Lungs oth erwise clear. Faint pleural calcifications. MEDIASTINUM AND HILAR STRUCTURES: No masses. Contour normal. HEART AND VASCULAR STRUCTURES: Heart normal in size. Normal vasculature. BONES: No acute findings. Degenerative changes in the spine and right shoulder. HARDWARE: Left shoulder prosthesis. Surgical clips in the soft tissues on the left side of the neck. OTHER: No other significant finding. IMPRESSION: CHRONIC SCARRING IN THE LEFT LUNG BASE. NO ACUTE RADIOGRAPHIC FINDING IN THE CHEST. TECHNICAL DOCUMENTATION: JOB ID: [id number] 2010 [employer]- All Rights Reserved Reading location - IP/workstation name: [email or web address]
[2020-01-07] MEDS: CEFTRIAXONE 1 GM/D5W RTU 1 GM/50 ML RTUPB IV SCH (12:09)
[2020-01-07] MEDS: DOXYCYCLINE HYCLATE 100 MG in DEXTROSE 5%-WATER 250 ML IV SCH ×2 (12:13→22:11)
[2020-01-07] MEDS: DEXAMETHASONE SOD PHOS INJ 10 MG/1 ML VIAL IV SCH (12:14)
[2020-01-07] MEDS: ENOXAPARIN SODIUM INJ 60 MG/0.6 ML DISP.SYRIN SUBCUT SCH ×2 (12:14→22:13)
[2020-01-07] MEDS: ASCORBIC ACID 500 MG TABLET PO SCH ×2 (12:16→19:13)
[2020-01-07] MEDS: ZINC SULFATE 220 MG CAPSULE PO SCH (12:16)
[2020-01-07] MEDS: CHOLECALCIFEROL (D3) 1,000 UNIT (25 MCG) TABLET PO SCH (12:16)
[2020-01-07] MEDS: FAMOTIDINE 20 MG TABLET PO SCH ×2 (12:17→22:12)
[2020-01-07] MEDS: AMIODARONE HCL 200 MG TABLET PO SCH ×2 (12:17→19:13)
[2020-01-07] MEDS: VENLAFAXINE HCL 75 MG TABLET PO SCH (12:17)
[2020-01-07] MEDS: DOCUSATE SODIUM 100 MG CAPSULE PO SCH (12:18)
[2020-01-07] MEDS: ASPIRIN 81 MG TABLET, ENT COATED PO SCH (12:18)
[2020-01-07] MEDS: MIDODRINE HCL 5 MG TABLET PO SCH ×2 (12:20→19:13)
[2020-01-07] MEDS: OXYCODONE-ACETAMINOPHEN 5-325 MG TABLET PO PRN ×2 (12:53→22:12)
--- NOTE | 2020-01-07 16:53 | PDOC PROGRESS REPORT ---
Subjective Progress Note for:: 01/07/20 Subjective:: No adverse events overnight. Her oxygen was turned up to 5 or 6 L this morning. She said she still feels really tired. She has a very congested sounding cough. No fevers. Reason For Visit: SYSTEMIC INFLAMMATORY RESPONSE, HYPOTENSION, Physical Exam Vital Signs: Temp Pulse Resp BP Pulse Ox 97.5 F 72 18 160/70 H 94 01/07/20 15:23 01/07/20 15:23 01/07/20 15:23 01/07/20 15:23 01/07/20 15:23 Intake & Output 01/06/20 01/07/20 01/08/20 06:59 06:59 06:59 Intake Total 2800 3420 120 Output Total 1700 1650 500 Balance 1100 1770 -380 Weight 75.3 kg 74.3 kg General appearance: PRESENT: no acute distress, well-developed, well-nourished, other Head exam: PRESENT: atraumatic, normocephalic Neck exam: ABSENT: carotid bruit, JVD, lymphadenopathy, thyromegaly Respiratory exam: PRESENT: Coarse breath sounds bhupendra. ABSENT: rales, rhonchi, wheezes Cardiovascular exam: PRESENT: RRR. ABSENT: diastolic murmur, rubs, systolic murmur GI/Abdominal exam: PRESENT: normal bowel sounds, soft. ABSENT: distended, guarding, mass, organolmegaly, rebound, tenderness Neurological exam: PRESENT: alert, awake, oriented to person, oriented to place, oriented to time, CN II-XII grossly intact. Results Laboratory Results: 01/07/20 05:47 01/07/20 05:47 01/07/20 01/07/20 05:47 05:47 WBC 8.2 RBC 3.57 L Hgb 9.2 L Hct 27.8 L MCV 78 L MCH 25.9 L MCHC 33.3 RDW 18.0 H Plt Count 235 Seg Neutrophils % 79.2 H Sodium 135.9 L Potassium 3.3 L Chloride 105 Carbon Dioxide 23 Anion Gap 8 BUN 12 Creatinine 0.68 Est GFR ( Amer) > 60 Glucose 79 Calcium 8.7 Total Bilirubin 0.4 AST 472 H Alkaline Phosphatase 116 Total Protein 5.6 L Albumin 2.9 L 01/05/20 16:30 Throat Throat Culture - Final NORMAL STEVEN 01/05/20 12:45 Troponin I 0.019 Impressions: Chest X-Ray 01/07/20 00:00 IMPRESSION: CHRONIC SCARRING IN THE LEFT LUNG BASE. NO ACUTE RADIOGRAPHIC FINDING IN THE CHEST. Assessment and Plan - Diagnosis (1) Person under investigation for COVID-19 Is this a current diagnosis for this admission?: Yes (2) Chronic hypoxemic respiratory failure Is this a current diagnosis for this admission?: Yes (3) Atrial fibrillation Qualifiers: Atrial fibrillation type: longstanding persistent Qualified Code(s): I48.11 - Longstanding persistent atrial fibrillation Is this a current diagnosis for this admission?: Yes (4) Hypotension Qualifiers: Hypotension type: unspecified hypotension type Qualified Code(s): I95.9 - Hypotension, unspecified Is this a current diagnosis for this admission?: Yes (5) CAD (coronary artery disease) Qualifiers: Coronary Disease-Associated Artery/Lesion type: unspecified vessel or lesion type Associated angina: without angina Is this a current diagnosis for this admission?: Yes (6) PVD (peripheral vascular disease) Is this a current diagnosis for this admission?: Yes (7) Debility Is this a current diagnosis for this admission?: Yes - Plan Summary Summary: She continues to receive empiric Decadron and antibiotics for potential bacterial pneumonia. Her coronavirus test was positive. The pharmacy will not release the appropriate antiviral therapy because her transaminases are elevated more than 5 times the upper limit of normal. This patient had evidence of acute liver damage from dehydration on admission, and her transaminases have responded to IV fluids. She had a 25% decrease from admission and her ALT in 1 day. I have ordered another liver panel and is currently pending. I argued on behalf of initiating remdesivir, with daily monitoring of transaminases so that the medication could be stopped if she began to have another rise in her liver panel, because I think that this patient with her age and risk factors for poor outcomes combined with her now worsening hypoxemia made the potential benefit worth the potential risk. She is in the category of patients who would be most likely to receive benefit from this medication. However, between the [facility] antimicrobial stewardship team, the [facility] antimicrobial st ewardship team, and the head of pharmacy at [facility] who apparently is the head of antimicrobial stewardship for this [facility] for [facility], they continue to withhold the release of remdesivir for this patient at this time. I will continue to advocate for this patient to receive the medication. - Time Time Spent with patient: 25-34 minutes Anticipated Discharge Disposition: Pending clinical course Anticipated Discharge Timeframe: Pending clinical course
[2020-01-07 16:56] LABS: INTERNATIONAL RATION (INR) 0.91; PROTHROMBIN TIME 12.5 SEC (11.4-15.4)
[2020-01-07 16:59] LABS: D-DIMER 0.55 ug/mL (0.00-0.50)
[2020-01-07] MEDS: ATORVASTATIN CALCIUM 40 MG TABLET PO SCH (22:12)
[2020-01-07] MEDS: DONEPEZIL HCL 5 MG TABLET PO SCH (22:13)
[2020-01-08] MEDS: LORAZEPAM 0.5 MG TABLET PO SCH ×2 (05:19→17:11)
[2020-01-08 05:47] LABS: ABSOLUTE LYMPHOCYTES (AUTO) 0.7 10^3/uL (0.5-4.7); ABSOLUTE MONOCYTES (AUTO) 0.7 10^3/uL (0.1-1.4); BASOPHILS % (AUTO) 0.2 % (0-2); EOSINOPHILS % (AUTO) 0.1 % (0-6); HEMATOCRIT 30.5 % (36.0-47.0); LYMPHOCYTES % (AUTO) 8.1 % (13-45); MEAN CORPUSCULAR HEMOGLOBIN 25.4 pg (27.0-33.4); MEAN CORPUSCULAR HGB CONC 32.9 g/dL (32.0-36.0); MEAN CORPUSCULAR VOLUME 77 fl (80-97); MONOCYTES % (AUTO) 7.8 % (3-13); PLATELET COUNT 232 10^3/uL (150-450); RED BLOOD COUNT 3.95 10^6/uL (3.72-5.28); RED CELL DISTRIBUTION WIDTH 17.8 % (11.5-14.0); SEGMENTED NEUTROPHILS % (AUTO) 83.8 % (42-78); TOTAL CELLS COUNTED % (AUTO) 100 %; WHITE BLOOD COUNT 8.3 10^3/uL (4.0-10.5)
[2020-01-08 06:02] LABS: ALBUMIN 3.3 g/dL (3.5-5.0); ALKALINE PHOSPHATASE 142 U/L (38-126); ANION GAP 10 (5-19); ASPARTATE AMINO TRANSFERASE 368 U/L (14-36); BILIRUBIN,DIRECT 0.6 mg/dL (0.0-0.4); BILIRUBIN,TOTAL 0.6 mg/dL (0.2-1.3); BLOOD UREA NITROGEN 12 mg/dL (7-20); CALCIUM 8.8 mg/dL (8.4-10.2); CARBON DIOXIDE 23 mmol/L (22-30); CHLORIDE 102 mmol/L (98-107); GLUCOSE 79 mg/dL (75-110); POTASSIUM 3.1 mmol/L (3.6-5.0); TOTAL PROTEIN 6.2 g/dL (6.3-8.2)
[2020-01-08 07:48] LABS: APPEARANCE,URINE CLEAR; BILIRUBIN,URINE NEGATIVE (NEGATIVE); COLOR,URINE YELLOW; GLUCOSE, URINE NEGATIVE (NEGATIVE); KETONES,URINE NEGATIVE (NEGATIVE); LEUKOCYTE ESTERASE,URINE NEGATIVE (NEGATIVE); NITRITE,URINE NEGATIVE (NEGATIVE); PROTEIN,URINE 30 mg/dL (NEGATIVE); URINE SPECIFIC GRAVITY 1.013; UROBILINOGEN,URINE NEGATIVE mg/dL (<2.0)
[2020-01-08] MEDS ORDERED: NORMAL SALINE 250 ML IV PRN (08:48)
[2020-01-08] MEDS: DEXAMETHASONE SOD PHOS INJ 10 MG/1 ML VIAL IV SCH (10:55)
[2020-01-08] MEDS: MIDODRINE HCL 5 MG TABLET PO SCH ×2 (10:56→17:10)
[2020-01-08] MEDS: ZINC SULFATE 220 MG CAPSULE PO SCH (10:56)
[2020-01-08] MEDS: VENLAFAXINE HCL 75 MG TABLET PO SCH (10:56)
[2020-01-08] MEDS: CHOLECALCIFEROL (D3) 1,000 UNIT (25 MCG) TABLET PO SCH (10:57)
[2020-01-08] MEDS: ASCORBIC ACID 500 MG TABLET PO SCH ×2 (10:57→17:11)
[2020-01-08] MEDS: AMIODARONE HCL 200 MG TABLET PO SCH ×2 (10:57→17:10)
[2020-01-08] MEDS: ASPIRIN 81 MG TABLET, ENT COATED PO SCH (10:57)
[2020-01-08] MEDS: FAMOTIDINE 20 MG TABLET PO SCH (10:57)
[2020-01-08] MEDS: DOCUSATE SODIUM 100 MG CAPSULE PO SCH (10:58)
[2020-01-08] MEDS: ENOXAPARIN SODIUM INJ 60 MG/0.6 ML DISP.SYRIN SUBCUT SCH (10:58)
[2020-01-08] MEDS: CEFTRIAXONE 1 GM/D5W RTU 1 GM/50 ML RTUPB IV SCH (10:59)
[2020-01-08] MEDS: DOXYCYCLINE HYCLATE 100 MG in DEXTROSE 5%-WATER 250 ML IV SCH (11:00)
[2020-01-08] MEDS: OXYCODONE-ACETAMINOPHEN 5-325 MG TABLET PO PRN (14:15)
--- NOTE | 2020-01-08 15:33 | PDOC PROGRESS REPORT ---
Subjective Progress Note for:: 01/08/20 Subjective:: No adverse events overnight. She was on 3 L this morning, but it looks like her oxygen saturations have started to drop down some during the day. We ordered some convalescent plasma for her. Transaminases are trending down but are still elevated above the threshold at which the pharmacy will release antiviral therapy for her. Reason For Visit: SYSTEMIC INFLAMMATORY RESPONSE, HYPOTENSION, Physical Exam Vital Signs: Temp Pulse Resp BP Pulse Ox 97.8 F 79 16 171/81 H 89 L 01/08/20 11:14 01/08/20 11:14 01/08/20 11:14 01/08/20 11:14 01/08/20 11:14 Intake & Output 01/07/20 01/08/20 01/09/20 06:59 06:59 06:59 Intake Total 3420 1990 300 Output Total 1650 1300 Balance 1770 690 300 Weight 74.3 kg 74.2 kg General appearance: PRESENT: no acute distress, well-developed, well-nourished, other Head exam: PRESENT: atraumatic, normocephalic Neck exam: ABSENT: carotid bruit, JVD, lymphadenopathy, thyromegaly Respiratory exam: PRESENT: Coarse breath sounds bhupendra. ABSENT: rales, rhonchi, wheezes Cardiovascular exam: PRESENT: RRR. ABSENT: diastolic murmur, rubs, systolic murmur GI/Abdominal exam: PRESENT: normal bowel sounds, soft. ABSENT: distended, guarding, mass, organolmegaly, rebound, tenderness Neurological exam: PRESENT: alert, awake, oriented to person, oriented to place, oriented to time, CN II-XII grossly intact. Results Laboratory Results: 01/08/20 05:07 01/08/20 05:07 01/07/20 01/08/20 01/08/20 13:30 05:07 05:07 WBC 8.3 RBC 3.95 Hgb 10.0 L Hct 30.5 L MCV 77 L MCH 25.4 L MCHC 32.9 RDW 17.8 H Plt Count 232 Seg Neutrophils % 83.8 H Sodium 134.6 L Potassium 3.1 L Chloride 102 Carbon Dioxide 23 Anion Gap 10 BUN 12 Creatinine 0.64 Est GFR ( Amer) > 60 Glucose 79 Calcium 8.8 Total Bilirubin Cancelled 0.6 AST Cancelled 368 H Alkaline Phosphatase Cancelled 142 H Total Protein Cancelled 6.2 L Albumin Cancelled 3.3 L Urine Color Urine Appearance Urine pH Ur Specific [place] Urine Protein Urine Glucose (UA) Urine Ketones Urine Blood Urine Nitrite Ur Leukocyte Esterase Urine WBC (Auto) Urine RBC (Auto) 01/08/20 05:30 WBC RBC Hgb Hct MCV MCH MCHC RDW Plt Count Seg Neutrophils % Sodium Potassium Chloride Carbon Dioxide Anion Gap BUN Creatinine Est GFR ( Amer) Glucose Calcium Total Bilirubin AST Alkaline Phosphatase Total Protein Albumin Urine Color YELLOW Urine Appearance CLEAR Urine pH 6.0 Ur Specific [place] 1.013 Urine Protein 30 H Urine Glucose (UA) NEGATIVE Urine Ketones NEGATIVE Urine Blood NEGATIVE Urine Nitrite NEGATIVE Ur Leukocyte Esterase NEGATIVE Urine WBC (Auto) 1 Urine RBC (Auto) 41 01/05/20 12:45 Troponin I 0.019 Impressions: Chest X-Ray 01/07/20 00:00 IMPRESSION: CHRONIC SCARRING IN THE LEFT LUNG BASE. NO ACUTE RADIOGRAPHIC FINDING IN THE CHEST. Assessment and Plan - Diagnosis (1) Person under investigation for COVID-19 Is this a current diagnosis for this admission?: Yes (2) Chronic hypoxemic respiratory failure Is this a current diagnosis for this admission?: Yes (3) Atrial fibrillation Qualifiers: Atrial fibrillation type: longstanding persistent Qualified Code(s): I48.11 - Longstanding persistent atrial fibrillation Is this a current diagnosis for this admission?: Yes (4) Hypotension Qualifiers: Hypotension type: unspecified hypotension type Qualified Code(s): I95.9 - Hypotension, unspecified Is this a current diagnosis for this admission?: Yes (5) CAD (coronary artery disease) Qualifiers: Coronary Disease-Associated Artery/Lesion type: unspecified vessel or lesion type Associated angina: without angina Is this a current diagnosis for this admission?: Yes (6) PVD (peripheral vascular disease) Is this a current diagnosis for this admission?: Yes (7) Debility Is this a current diagnosis for this admission?: Yes - Plan Summary Summary: She continues to receive empiric Decadron and antibiotics for potential bacterial pneumonia. Her coronavirus test was positive. The pharmacy will not release the appropriate antiviral therapy because her transaminases are elevated more than 5 times the upper limit of normal. This patient had evidence of acute liver damage from dehydration on admission, and her transaminases have responded to IV fluids. She had a 25% decrease from admission and her ALT in 1 day. I argued on behalf of initiating remdesivir, with daily monitoring of transaminases so that the medication could be stopped if she began to have another rise in her liver panel. We ordered some convalescent plasma. We will continue to monitor closely. - Time Time Spent with patient: 15-24 minutes Anticipated Discharge Disposition: Pending clinical course Anticipated Discharge Timeframe: Pending clinical course
[2020-01-08] MEDS: NORMAL SALINE 1000 ML 1,000 ML IV PRN (17:40)
[2020-01-09] MEDS: LORAZEPAM 1 MG TABLET PO PRN ×2 (00:18→21:38)
[2020-01-09] MEDS: OXYCODONE-ACETAMINOPHEN 5-325 MG TABLET PO PRN ×2 (00:18→21:38)
[2020-01-09] MEDS: DONEPEZIL HCL 5 MG TABLET PO SCH ×2 (00:19→21:38)
[2020-01-09] MEDS: ENOXAPARIN SODIUM INJ 60 MG/0.6 ML DISP.SYRIN SUBCUT SCH ×3 (00:19→21:39)
[2020-01-09] MEDS: FAMOTIDINE 20 MG TABLET PO SCH ×3 (00:19→21:39)
[2020-01-09] MEDS: ATORVASTATIN CALCIUM 40 MG TABLET PO SCH ×2 (00:19→21:38)
[2020-01-09] MEDS: DOXYCYCLINE HYCLATE 100 MG in DEXTROSE 5%-WATER 250 ML IV SCH ×3 (01:00→21:39)
[2020-01-09] MEDS: LORAZEPAM 0.5 MG TABLET PO SCH ×2 (05:47→17:41)
[2020-01-09] MEDS: NORMAL SALINE 1000 ML 1,000 ML IV PRN (08:51)
[2020-01-09] MEDS: ZINC SULFATE 220 MG CAPSULE PO SCH (10:09)
[2020-01-09] MEDS: VENLAFAXINE HCL 75 MG TABLET PO SCH (10:09)
[2020-01-09] MEDS: CHOLECALCIFEROL (D3) 1,000 UNIT (25 MCG) TABLET PO SCH (10:11)
[2020-01-09] MEDS: DOCUSATE SODIUM 100 MG CAPSULE PO SCH (10:11)
[2020-01-09] MEDS: MIDODRINE HCL 5 MG TABLET PO SCH (10:11)
[2020-01-09] MEDS: ASPIRIN 81 MG TABLET, ENT COATED PO SCH (10:11)
[2020-01-09] MEDS: ASCORBIC ACID 500 MG TABLET PO SCH ×2 (10:12→17:41)
[2020-01-09] MEDS: DEXAMETHASONE SOD PHOS INJ 10 MG/1 ML VIAL IV SCH (10:12)
[2020-01-09] MEDS: AMIODARONE HCL 200 MG TABLET PO SCH ×2 (10:12→17:41)
[2020-01-09] MEDS: CEFTRIAXONE 1 GM/D5W RTU 1 GM/50 ML RTUPB IV SCH (10:13)
--- NOTE | 2020-01-09 14:49 | PDOC PROGRESS REPORT ---
Subjective Progress Note for:: 01/09/20 Subjective:: No adverse events overnight. She fortunately remains on 3 L. She was agitated this morning, taking off all of her clothes and trying to get out of the bed. Reason For Visit: SYSTEMIC INFLAMMATORY RESPONSE, HYPOTENSION, Physical Exam Vital Signs: Temp Pulse Resp BP Pulse Ox 97.5 F 76 20 156/80 H 92 01/09/20 12:13 01/09/20 12:13 01/09/20 12:13 01/09/20 12:13 01/09/20 12:13 Intake & Output 01/08/20 01/09/20 01/10/20 06:59 06:59 06:59 Intake Total 1989 2420 508 Output Total 1300 675 Balance 690 1745 508 Weight 74.2 kg 74.3 kg General appearance: PRESENT: no acute distress, well-developed, well-nourished, other Head exam: PRESENT: atraumatic, normocephalic Neck exam: ABSENT: carotid bruit, JVD, lymphadenopathy, thyromegaly Respiratory exam: PRESENT: Coarse breath sounds bhupendra. ABSENT: rales, rhonchi, wheezes Cardiovascular exam: PRESENT: RRR. ABSENT: diastolic murmur, rubs, systolic murmur GI/Abdominal exam: PRESENT: normal bowel sounds, soft. ABSENT: distended, guard ing, mass, organolmegaly, rebound, tenderness Neurological exam: PRESENT: alert, awake, oriented to person, oriented to place, oriented to time, CN II-XII grossly intact. Results Laboratory Results: 01/08/20 05:07 01/08/20 05:07 01/08/20 15:15 Blood Type O POSITIVE 01/05/20 12:45 Troponin I 0.019 Impressions: Chest X-Ray 01/07/20 00:00 IMPRESSION: CHRONIC SCARRING IN THE LEFT LUNG BASE. NO ACUTE RADIOGRAPHIC FINDING IN THE CHEST. Assessment and Plan - Diagnosis (1) Person under investigation for COVID-19 Is this a current diagnosis for this admission?: Yes (2) Chronic hypoxemic respiratory failure Is this a current diagnosis for this admission?: Yes (3) Atrial fibrillation Qualifiers: Atrial fibrillation type: longstanding persistent Qualified Code(s): I48.11 - Longstanding persistent atrial fibrillation Is this a current diagnosis for this admission?: Yes (4) Hypotension Qualifiers: Hypotension type: unspecified hypotension type Qualified Code(s): I95.9 - Hypotension, unspecified Is this a current diagnosis for this admission?: Yes (5) CAD (coronary artery disease) Qualifiers: Coronary Disease-Associated Artery/Lesion type: unspecified vessel or lesion type Associated angina: without angina Is this a current diagnosis for this admission?: Yes (6) PVD (peripheral vascular disease) Is this a current diagnosis for this admission?: Yes (7) Debility Is this a current diagnosis for this admission?: Yes - Plan Summary Summary: She continues to receive empiric Decadron and antibiotics for potential bacterial pneumonia. Her coronavirus test was positive. The pharmacy will not release the appropriate antiviral therapy because her transaminases are elevated more than 5 times the upper limit of normal. She has received convalescent plasma. We are going to follow-up her transaminases but there was difficulty with the blood draw this morning. - Time Time Spent with patient: 15-24 minutes Anticipated Discharge Disposition: Home with Home Health Anticipated Discharge Timeframe: within 72 hours
[2020-01-09 16:03] LABS: HEMATOCRIT 26.2 % (36.0-47.0); HEMOGLOBIN 8.6 g/dL (12.0-15.5); MEAN CORPUSCULAR HEMOGLOBIN 25.3 pg (27.0-33.4); MEAN CORPUSCULAR HGB CONC 32.7 g/dL (32.0-36.0); MEAN CORPUSCULAR VOLUME 77 fl (80-97); PLATELET COUNT 207 10^3/uL (150-450); RED CELL DISTRIBUTION WIDTH 17.8 % (11.5-14.0); WHITE BLOOD COUNT 12.7 10^3/uL (4.0-10.5)
[2020-01-09 16:11] LABS: INTERNATIONAL RATION (INR) 1.06
[2020-01-09 16:13] LABS: D-DIMER 0.86 ug/mL (0.00-0.50)
[2020-01-09 16:17] LABS: ALBUMIN 2.8 g/dL (3.5-5.0); ALKALINE PHOSPHATASE 142 U/L (38-126); ANION GAP 9 (5-19); BILIRUBIN,DIRECT 0.6 mg/dL (0.0-0.4); BILIRUBIN,TOTAL 0.6 mg/dL (0.2-1.3); BLOOD UREA NITROGEN 8 mg/dL (7-20); CARBON DIOXIDE 18 mmol/L (22-30); CHLORIDE 108 mmol/L (98-107); GLUCOSE 125 mg/dL (75-110); TOTAL PROTEIN 5.5 g/dL (6.3-8.2)
[2020-01-09 16:25] LABS: BASOPHILS % (MANUAL) 0 % (0-2); EOSINOPHILS % (MANUAL) 0 % (0-6); LYMPHOCYTES % (MANUAL) 8 % (13-45); MONOCYTES % (MANUAL) 0 % (3-13); SEGMENTED NEUTROPHILS % (MAN) 92 % (42-78); TOTAL CELLS COUNTED 100
[2020-01-09 16:26] LABS: ANISOCYTOSIS 1+; ASPARTATE AMINO TRANSFERASE 1179 U/L (14-36); HYPOCHROMASIA SLIGHT; OVALOCYTES SLIGHT; PLATELET COMMENT ADEQUATE
[2020-01-09 16:27] LABS: POTASSIUM 2.9 mmol/L (3.6-5.0)
[2020-01-09] MEDS: POTASSIUM CHLORIDE 20 MEQ/50 ML RTU IV SCH ×2 (20:21→23:08)
[2020-01-10] MEDS: NORMAL SALINE 1000 ML 1,000 ML IV PRN (00:45)
[2020-01-10] MEDS: LORAZEPAM 0.5 MG TABLET PO SCH ×2 (06:13→18:10)
[2020-01-10 07:39] LABS: ABSOLUTE LYMPHOCYTES (AUTO) 1.2 10^3/uL (0.5-4.7); ABSOLUTE MONOCYTES (AUTO) 0.6 10^3/uL (0.1-1.4); ABSOLUTE NEUT (AUTO) 11.8 10^3/uL (1.7-8.2); BASOPHILS % (AUTO) 0.4 % (0-2); EOSINOPHILS % (AUTO) 0.1 % (0-6); HEMATOCRIT 27.9 % (36.0-47.0); LYMPHOCYTES % (AUTO) 8.6 % (13-45); MEAN CORPUSCULAR HEMOGLOBIN 24.8 pg (27.0-33.4); MEAN CORPUSCULAR HGB CONC 32.1 g/dL (32.0-36.0); MEAN CORPUSCULAR VOLUME 77 fl (80-97); MONOCYTES % (AUTO) 4.3 % (3-13); PLATELET COUNT 209 10^3/uL (150-450); RED BLOOD COUNT 3.61 10^6/uL (3.72-5.28); RED CELL DISTRIBUTION WIDTH 18.2 % (11.5-14.0); SEGMENTED NEUTROPHILS % (AUTO) 86.6 % (42-78); TOTAL CELLS COUNTED % (AUTO) 100 %; WHITE BLOOD COUNT 13.7 10^3/uL (4.0-10.5)
[2020-01-10] MEDS: ZINC SULFATE 220 MG CAPSULE PO SCH (11:14)
[2020-01-10] MEDS: VENLAFAXINE HCL 75 MG TABLET PO SCH (11:14)
[2020-01-10] MEDS: ASCORBIC ACID 500 MG TABLET PO SCH ×2 (11:14→18:10)
[2020-01-10] MEDS: FAMOTIDINE 20 MG TABLET PO SCH ×2 (11:15→21:49)
[2020-01-10] MEDS: ASPIRIN 81 MG TABLET, ENT COATED PO SCH (11:15)
[2020-01-10] MEDS: AMIODARONE HCL 200 MG TABLET PO SCH ×2 (11:15→18:10)
[2020-01-10] MEDS: CEFTRIAXONE 1 GM/D5W RTU 1 GM/50 ML RTUPB IV SCH (11:15)
[2020-01-10] MEDS: DEXAMETHASONE SOD PHOS INJ 10 MG/1 ML VIAL IV SCH (11:15)
[2020-01-10] MEDS: CHOLECALCIFEROL (D3) 1,000 UNIT (25 MCG) TABLET PO SCH (11:15)
[2020-01-10] MEDS: DOXYCYCLINE HYCLATE 100 MG in DEXTROSE 5%-WATER 250 ML IV SCH ×2 (11:16→21:48)
[2020-01-10] MEDS: ENOXAPARIN SODIUM INJ 60 MG/0.6 ML DISP.SYRIN SUBCUT SCH ×2 (11:16→21:49)
[2020-01-10] MEDS: DOCUSATE SODIUM 100 MG CAPSULE PO SCH (11:17)
--- NOTE | 2020-01-10 12:22 | PDOC PROGRESS REPORT ---
Subjective Progress Note for:: 01/10/20 Subjective:: No adverse events overnight. She fortunately remains on 3 L. She was much more calm this morning. She wants to know when she can leave the hospital. Reason For Visit: SYSTEMIC INFLAMMATORY RESPONSE, HYPOTENSION, Physical Exam Vital Signs: Temp Pulse Resp BP Pulse Ox 98.4 F 59 L 20 158/67 H 100 01/10/20 08:30 01/10/20 08:30 01/10/20 08:30 01/10/20 08:30 01/10/20 08:30 Intake & Output 01/09/20 01/10/20 01/11/20 06:59 06:59 06:59 Intake Total 2420 2183 Output Total 675 1270 Balance 1745 913 Weight 74.3 kg 74.9 kg General appearance: PRESENT: no acute distress, well-developed, well-nourished, other Head exam: PRESENT: atraumatic, normocephalic Neck exam: ABSENT: carotid bruit, JVD, lymphadenopathy, thyromegaly Respiratory exam: PRESENT: Coarse breath sounds bhupendra. ABSENT: rales, rhonchi, wheezes Cardiovascular exam: PRESENT: RRR. ABSENT: diastolic murmur, rubs, systolic murmur GI/Abdominal exam: PRESENT: normal bowel sounds, soft. ABSENT: distended, guarding, mass, organolmegaly, rebound, tenderness Neurological exam: PRESENT: alert, awake, oriented to person, oriented to place, oriented to time, CN II-XII grossly intact. Results Laboratory Results: 01/10/20 06:14 01/10/20 06:14 01/09/20 01/09/20 01/10/20 15:53 15:53 06:14 WBC 12.7 H 13.7 H RBC 3.40 L 3.61 L Hgb 8.6 L 9.0 L Hct 26.2 L 27.9 L MCV 77 L 77 L MCH 25.3 L 24.8 L MCHC 32.7 32.1 RDW 17.8 H 18.2 H Plt Count 207 209 Seg Neutrophils % Not Reportable 86.6 H Sodium 135.2 L Potassium 2.9 L* Chloride 108 H Carbon Dioxide 18 L Anion Gap 9 BUN 8 Creatinine 0.56 Est GFR ( Amer) > 60 Est GFR (Non-Af Amer) Glucose 125 H Calcium 8.0 L Total Bilirubin 0.6 AST 1179 H Alkaline Phosphatase 142 H Total Protein 5.5 L Albumin 2.8 L 01/10/20 06:14 WBC RBC Hgb Hct MCV MCH MCHC RDW Plt Count Seg Neutrophils % Sodium Cancelled Potassium Cancelled Chloride Cancelled Carbon Dioxide Cancelled Anion Gap Cancelled BUN Cancelled Creatinine Cancelled Est GFR ( Amer) Cancelled Est GFR (Non-Af Amer) Cancelled Glucose Cancelled Calcium Cancelled Total Bilirubin Cancelled AST Cancelled Alkaline Phosphatase Cancelled Total Protein Cancelled Albumin Cancelled 01/05/20 12:45 Troponin I 0.019 Impressions: Chest X-Ray 01/07/20 00:00 IMPRESSION: CHRONIC SCARRING IN THE LEFT LUNG BASE. NO ACUTE RADIOGRAPHIC FINDING IN THE CHEST. Assessment and Plan - Diagnosis (1) Person under investigation for COVID-19 Is this a current diagnosis for this admission?: Yes (2) Chronic hypoxemic respiratory failure Is this a current diagnosis for this admission?: Yes (3) Atrial fibrillation Qualifiers: Atrial fibrillation type: longstanding persistent Qualified Code(s): I48.11 - Longstanding persistent atrial fibrillation Is this a current diagnosis for this admission?: Yes (4) Hypotension Qualifiers: Hypotension type: unspecified hypotension type Qualified Code(s): I95.9 - Hypotension, unspecified Is this a current diagnosis for this admission?: Yes (5) CAD (coronary artery disease) Qualifiers: Coronary Disease-Associated Artery/Lesion type: unspecified vessel or lesion type Associated angina: without angina Is this a current diagnosis for this admission?: Yes (6) PVD (peripheral vascular disease) Is this a current diagnosis for this admission?: Yes (7) Debility Is this a current diagnosis for this admission?: Yes - Plan Summary Summary: She continues to receive empiric Decadron and antibiotics for potential bacterial pneumonia. Her coronavirus test was positive. The pharmacy will not release the appropriate antiviral therapy because her transaminases are elevated more than 5 times the upper limit of normal. She has received convalescent plasma. Fortunately she has remained relatively stable, but my concern now is that she is out of any window of time at which antiviral therapy would be effective for her. She may be able to go home in the next couple of days as long as her oxygenation does not deteriorate. - Time Time Spent with patient: 15-24 minutes Anticipated Discharge Disposition: Home with Home Health Anticipated Discharge Timeframe: within 72 hours
[2020-01-10 15:47] LABS: ALBUMIN 2.6 g/dL (3.5-5.0); ALKALINE PHOSPHATASE 179 U/L (38-126); ANION GAP 8 (5-19); BILIRUBIN,DIRECT 0.8 mg/dL (0.0-0.4); BILIRUBIN,TOTAL 0.8 mg/dL (0.2-1.3); BLOOD UREA NITROGEN 8 mg/dL (7-20); CALCIUM 7.9 mg/dL (8.4-10.2); CARBON DIOXIDE 19 mmol/L (22-30); CHLORIDE 107 mmol/L (98-107); GLUCOSE 125 mg/dL (75-110); POTASSIUM 3.1 mmol/L (3.6-5.0); TOTAL PROTEIN 5.4 g/dL (6.3-8.2)
[2020-01-10 15:54] LABS: ASPARTATE AMINO TRANSFERASE 1218 U/L (14-36)
[2020-01-10] MEDS: MAGNESIUM SULFATE/D5W 1 GM/100 ML RTUPB IV SCH ×2 (18:10→20:22)
[2020-01-10] MEDS: DONEPEZIL HCL 5 MG TABLET PO SCH (21:49)
[2020-01-10] MEDS: LORAZEPAM 1 MG TABLET PO PRN (21:49)
[2020-01-10] MEDS: OXYCODONE-ACETAMINOPHEN 5-325 MG TABLET PO PRN (21:49)
[2020-01-10] MEDS: ATORVASTATIN CALCIUM 40 MG TABLET PO SCH (21:49)
[2020-01-10] MEDS: POTASSIUM CHLORIDE 10 MEQ TABLET.ER PO SCH (21:49)
[2020-01-11] MEDS: LORAZEPAM 0.5 MG TABLET PO SCH ×2 (06:04→17:05)
[2020-01-11] MEDS: OXYCODONE-ACETAMINOPHEN 5-325 MG TABLET PO PRN (06:45)
[2020-01-11] MEDS ORDERED: FUROSEMIDE INJ/PF 40 MG/4 ML SDV IV ONE (08:30)
[2020-01-11 09:00] LABS: ABSOLUTE LYMPHOCYTES (AUTO) 0.9 10^3/uL (0.5-4.7); ABSOLUTE MONOCYTES (AUTO) 0.7 10^3/uL (0.1-1.4); ABSOLUTE NEUT (AUTO) 13.4 10^3/uL (1.7-8.2); BASOPHILS % (AUTO) 0.2 % (0-2); HEMATOCRIT 27.3 % (36.0-47.0); LYMPHOCYTES % (AUTO) 6.2 % (13-45); MEAN CORPUSCULAR HEMOGLOBIN 25.3 pg (27.0-33.4); MEAN CORPUSCULAR HGB CONC 32.9 g/dL (32.0-36.0); MEAN CORPUSCULAR VOLUME 77 fl (80-97); MONOCYTES % (AUTO) 4.7 % (3-13); PLATELET COUNT 231 10^3/uL (150-450); RED BLOOD COUNT 3.55 10^6/uL (3.72-5.28); RED CELL DISTRIBUTION WIDTH 17.9 % (11.5-14.0); SEGMENTED NEUTROPHILS % (AUTO) 88.9 % (42-78); TOTAL CELLS COUNTED % (AUTO) 100 %
--- NOTE | 2020-01-11 09:14 | RADIOLOGY REPORT (SQ) ---
EXAM DESCRIPTION: CHEST SINGLE VIEW IMAGES COMPLETED DATE/TIME: 01/11/2020 8:44 am REASON FOR STUDY: worsening hypoxemia COMPARISON: None. EXAM PARAMETERS: NUMBER OF VIEWS: One view. TECHNIQUE: Single frontal radiographic view of the chest acquired. RADIATION DOSE: NA LIMITATIONS: None. FINDINGS: LUNGS AND PLEURA: Low lung volumes with coarse chronic interstitial opacities. Mildly inc reased interstitial prominence compared to prior. No dense consolidation. No pleural effusion or pn eumothorax. MEDIASTINUM AND HILAR STRUCTURES: No masses. Contour normal. HEART AND VASCULAR STRUCTURES: Normal heart size. Vascular calcifications. BONES: No acute findings. HARDWARE: Left shoulder arthroplasty. No acute findings. OTHER: No other significant finding. IMPRESSION: Coarse chronic interstitial changes with increased interstitial opacities from priors ma y represent superimposed edema or atypical infection. TECHNICAL DOCUMENTATION: JOB ID: [id number] 2010 [employer]- All Rights Reserved Reading location - IP/workstation name: [email or web address]
[2020-01-11] MEDS: DOCUSATE SODIUM 100 MG CAPSULE PO SCH (09:39)
[2020-01-11 09:41] LABS: ALBUMIN 2.7 g/dL (3.5-5.0); ALKALINE PHOSPHATASE 186 U/L (38-126); ANION GAP 10 (5-19); BILIRUBIN,DIRECT 0.9 mg/dL (0.0-0.4); BILIRUBIN,TOTAL 0.9 mg/dL (0.2-1.3); BLOOD UREA NITROGEN 12 mg/dL (7-20); CALCIUM 8.4 mg/dL (8.4-10.2); CARBON DIOXIDE 18 mmol/L (22-30); CHLORIDE 107 mmol/L (98-107); GLUCOSE 91 mg/dL (75-110); POTASSIUM 3.6 mmol/L (3.6-5.0); TOTAL PROTEIN 5.3 g/dL (6.3-8.2)
[2020-01-11] MEDS: ZINC SULFATE 220 MG CAPSULE PO SCH (09:43)
[2020-01-11] MEDS: AMIODARONE HCL 200 MG TABLET PO SCH ×2 (09:43→17:05)
[2020-01-11] MEDS: CHOLECALCIFEROL (D3) 1,000 UNIT (25 MCG) TABLET PO SCH (09:43)
[2020-01-11] MEDS: FAMOTIDINE 20 MG TABLET PO SCH ×2 (09:43→22:55)
[2020-01-11] MEDS: ASPIRIN 81 MG TABLET, ENT COATED PO SCH (09:43)
[2020-01-11] MEDS: POTASSIUM CHLORIDE 10 MEQ TABLET.ER PO SCH ×2 (09:43→22:55)
[2020-01-11] MEDS: VENLAFAXINE HCL 75 MG TABLET PO SCH (09:43)
[2020-01-11] MEDS: ASCORBIC ACID 500 MG TABLET PO SCH ×2 (09:43→17:05)
[2020-01-11] MEDS: CEFTRIAXONE 1 GM/D5W RTU 1 GM/50 ML RTUPB IV SCH (09:44)
[2020-01-11] MEDS: DEXAMETHASONE SOD PHOS INJ 10 MG/1 ML VIAL IV SCH (09:44)
[2020-01-11] MEDS: ENOXAPARIN SODIUM INJ 60 MG/0.6 ML DISP.SYRIN SUBCUT SCH ×2 (09:44→22:55)
[2020-01-11 09:54] LABS: ASPARTATE AMINO TRANSFERASE 852 U/L (14-36)
[2020-01-11] MEDS: DOXYCYCLINE HYCLATE 100 MG in DEXTROSE 5%-WATER 250 ML IV SCH ×2 (10:36→22:55)
--- NOTE | 2020-01-11 13:04 | PDOC PROGRESS REPORT ---
Subjective Progress Note for:: 01/11/20 Subjective:: She went up to a nonrebreather overnight. This morning her saturations were low again and she wound up going on to heated high flow nasal cannula. She looks pretty comfortable at this time. Chest x-ray showed a lot of interstitial edema. Transaminases have trended down. No abdominal pain. Reason For Visit: SYSTEMIC INFLAMMATORY RESPONSE, HYPOTENSION, Physical Exam Vital Signs: Temp Pulse Resp BP Pulse Ox 98.3 F 113 H 16 100/58 L 79 L 01/11/20 08:44 01/11/20 08:44 01/11/20 08:44 01/11/20 08:44 01/11/20 08:44 Intake & Output 01/10/20 01/11/20 01/12/20 06:59 06:59 06:59 Intake Total 2183 2075 50 Output Total 1270 1075 Balance 913 1000 50 Weight 74.9 kg 74 kg General appearance: PRESENT: Mild distress, well-developed, well-nourished, other Head exam: PRESENT: atraumatic, normocephalic Neck exam: ABSENT: carotid bruit, JVD, lymphadenopathy, thyromegaly Respiratory exam: PRESENT: Coarse breath sounds bhupendra, crackles. ABSENT: rales, rhonchi, wheezes Cardiovascular exam: PRESENT: RRR. ABSENT: diastolic murmur, rubs, systolic murmur GI/Abdominal exam: PRESENT: normal bowel sounds, soft. ABSENT: distended, guarding, mass, organolmegaly, rebound, tenderness Neurological exam: PRESENT: alert, awake, oriented to person, oriented to place, oriented to time, CN II-XII grossly intact. Results Laboratory Results: 01/11/20 07:48 01/11/20 07:48 01/10/20 01/11/20 01/11/20 15:14 07:48 07:48 WBC 15.0 H RBC 3.55 L Hgb 9.0 L Hct 27.3 L MCV 77 L MCH 25.3 L MCHC 32.9 RDW 17.9 H Plt Count 231 Seg Neutrophils % 88.9 H Carbonic Acid HCO3/H2CO3 Ratio ABG pH ABG pCO2 ABG pO2 ABG HCO3 ABG O2 Saturation ABG Base Excess FiO2 Sodium 134.1 L 134.8 L Potassium 3.1 L 3.6 Chloride 107 107 Carbon Dioxide 19 L 18 L Anion Gap 8 10 BUN 8 12 Creatinine 0.55 0.68 Est GFR ( Amer) > 60 > 60 Glucose 125 H 91 Calcium 7.9 L 8.4 Magnesium 1.3 L Total Bilirubin 0.8 0.9 AST 1218 H 852 H Alkaline Phosphatase 179 H 186 H Total Protein 5.4 L 5.3 L Albumin 2.6 L 2.7 L 01/11/20 09:00 WBC RBC Hgb Hct MCV MCH MCHC RDW Plt Count Seg Neutrophils % Carbonic Acid Cancelled HCO3/H2CO3 Ratio Cancelled ABG pH Cancelled ABG pCO2 Cancelled ABG pO2 Cancelled ABG HCO3 Cancelled ABG O2 Saturation Cancelled ABG Base Excess Cancelled FiO2 Cancelled Sodium Potassium Chloride Carbon Dioxide Anion Gap BUN Creatinine Est GFR ( Amer) Glucose Calcium Magnesium Total Bilirubin AST Alkaline Phosphatase Total Protein Albumin 01/05/20 12:45 Blood Blood Culture - Final NO GROWTH IN 5 DAYS 01/05/20 12:45 Troponin I 0.019 Impressions: Chest X-Ray 01/11/20 00:00 IMPRESSION: Coarse chronic interstitial changes with increased interstitial opacities from priors may represent superimposed edema or atypical infection. Assessment and Plan - Diagnosis (1) Person under investigation for COVID-19 Is this a current diagnosis for this admission?: Yes (2) Chronic hypoxemic respiratory failure Is this a current diagnosis for this admission?: Yes (3) Atrial fibrillation Qualifiers: Atrial fibrillation type: longstanding persistent Qualified Code(s): I48.11 - Longstanding persistent atrial fibrillation Is this a current diagnosis for this admission?: Yes (4) Hypotension Qualifiers: Hypotension type: unspecified hypotension type Qualified Code(s): I95.9 - Hypotension, unspecified Is this a current diagnosis for this admission?: Yes (5) CAD (coronary artery disease) Qualifiers: Coronary Disease-Associated Artery/Lesion type: unspecified vessel or lesion type Associated angina: without angina Is this a current diagnosis for this admission?: Yes (6) PVD (peripheral vascular disease) Is this a current diagnosis for this admission?: Yes (7) Debility Is this a current diagnosis for this admission?: Yes - Plan Summary Summary: She continues to receive empiric Decadron and antibiotics for potential bacterial pneumonia. Her coronavirus test was positive. The pharmacy will not release the appropriate antiviral therapy because her transaminases are elevated more than 5 times the upper limit of normal. She has received convalescent plasma. My concern now is that she is out of any window of time at which antiviral therapy would be effective for her. Chest x-ray and exam revealed some possible fluid overload. I am getting give her some Lasix and see if this helps improve her respiratory status. We will continue with a high flow nasal cannula and will titrate down as possible. - Time Time Spent with patient: 25-34 minutes Anticipated Discharge Disposition: Pending clinical course Anticipated Discharge Timeframe: Ending clinical course
[2020-01-11] MEDS: FUROSEMIDE INJ/PF 40 MG/4 ML SDV IV SCH ×2 (13:17→22:57)
[2020-01-11 13:23] LABS: ARTERIAL BLOOD BASE EXCESS -4.2 mmol/L; ARTERIAL BLOOD H2CO3 1.13 mmol/L (1.05-1.35); ARTERIAL BLOOD HCO3 20.8 mmol/L (20-24); ARTERIAL BLOOD PCO2 37.6 mmHg (35-45); ARTERIAL BLOOD PH 7.36 (7.35-7.45)
[2020-01-11 13:29] LABS: ARTERIAL BLOOD FIO2 85%
[2020-01-11 13:34] LABS: ARTERIAL BLOOD PO2 35.4 mmHg (80-100)
--- NOTE | 2020-01-11 13:44 | RADIOLOGY REPORT (SQ) ---
EXAM DESCRIPTION: U/S ABDOMEN LIMITED W/O DOP IMAGES COMPLETED DATE/TIME: 01/11/2020 12:55 pm REASON FOR STUDY: acute liver injury COMPARISON: None. TECHNIQUE: Dynamic and static grayscale images acquired of the abdomen and recorded on PACS. Additio nal selected color Doppler and spectral images recorded. LIMITATIONS: Limited exam due to body habitus and patient motion. FINDINGS: PANCREAS: No masses. Visualized pancreatic duct normal caliber. LIVER: No masses. Echotexture normal. LIVER VASCULATURE: Portal vein not visualized due to body habitus and respiratory motion. GALLBLADDER: Dependent echogenic foci compatible with cholelithiasis. Gallbladder dilated measuring 5.6 cm transversely. Minimal wall thickening measuring 3.6 mm. No pericholecystic fluid. ULTRASOUND-DETECTED COOPER'S SIGN: Negative. INTRAHEPATIC DUCTS AND COMMON DUCT: CBD and intrahepatic ducts normal caliber. No filling defects. INFERIOR VENA CAVA: Normal flow. AORTA: Partially visualized. No aneurysm. RIGHT KIDNEY: Small measuring 8.9 cm. Normal echogenicity. No solid or suspicious masses. No hydrone phrosis. No calcifications. PERITONEAL AND RIGHT PLEURAL SPACE: No ascites or effusions. OTHER: No other significant findings. IMPRESSION: Limited exam due to body habitus and respiratory motion. Cholelithiasis with gallbladder dilation and mild wall thickening. Negative pericholecystic fluid or reported sonographic Cooper's sign. Findings nondiagnostic for, but may represent early acute vincenzo cystitis. Recommend correlation with patient symptoms and lab findings. TECHNICAL DOCUMENTATION: JOB ID: [id number] 2010 [id number]- All Rights Reserved Reading location - IP/workstation name: [email or web address]
[2020-01-11] MEDS: ATORVASTATIN CALCIUM 40 MG TABLET PO SCH (22:55)
[2020-01-11] MEDS: DONEPEZIL HCL 5 MG TABLET PO SCH (22:55)
[2020-01-12] MEDS: FUROSEMIDE INJ/PF 40 MG/4 ML SDV IV SCH ×3 (05:32→23:00)
[2020-01-12] MEDS: LORAZEPAM 0.5 MG TABLET PO SCH (05:32)
[2020-01-12 05:47] LABS: HEMATOCRIT 32.1 % (36.0-47.0); HEMOGLOBIN 10.3 g/dL (12.0-15.5); MEAN CORPUSCULAR HEMOGLOBIN 24.4 pg (27.0-33.4); MEAN CORPUSCULAR VOLUME 76 fl (80-97); PLATELET COUNT 233 10^3/uL (150-450); RED BLOOD COUNT 4.21 10^6/uL (3.72-5.28); RED CELL DISTRIBUTION WIDTH 18.4 % (11.5-14.0); WHITE BLOOD COUNT 15.9 10^3/uL (4.0-10.5)
[2020-01-12 06:05] LABS: ABSOLUTE LYMPHOCYTES# (MANUAL) 1.4 10^3/uL (0.5-4.7); ABSOLUTE MONOCYTES # (MANUAL) 0.3 10^3/uL (0.1-1.4); BASOPHILS % (MANUAL) 0 % (0-2); EOSINOPHILS % (MANUAL) 0 % (0-6); LYMPHOCYTES % (MANUAL) 9 % (13-45); MONOCYTES % (MANUAL) 2 % (3-13); NUCLEATED RED BLOOD CELLS 1 /100 WBC (0); SEGMENTED NEUTROPHILS % (MAN) 89 % (42-78); TOTAL CELLS COUNTED 100
[2020-01-12 06:06] LABS: ANISOCYTOSIS 2+; HYPOCHROMASIA SLIGHT; PLATELET COMMENT ADEQUATE; POLYCHROMASIA SLIGHT; SCHISTOCYTES SLIGHT; TEAR DROP CELLS SLIGHT; TOXIC GRANULATION SLIGHT
[2020-01-12] MEDS: DOCUSATE SODIUM 100 MG CAPSULE PO SCH (10:37)
[2020-01-12] MEDS: AMIODARONE HCL 200 MG TABLET PO SCH (10:38)
[2020-01-12] MEDS: CEFTRIAXONE 1 GM/D5W RTU 1 GM/50 ML RTUPB IV SCH (10:38)
[2020-01-12] MEDS: CHOLECALCIFEROL (D3) 1,000 UNIT (25 MCG) TABLET PO SCH (10:38)
[2020-01-12] MEDS: ASPIRIN 81 MG TABLET, ENT COATED PO SCH (10:38)
[2020-01-12] MEDS: POTASSIUM CHLORIDE 10 MEQ TABLET.ER PO SCH ×2 (10:39→23:00)
[2020-01-12] MEDS: FAMOTIDINE 20 MG TABLET PO SCH ×2 (10:39→23:00)
[2020-01-12] MEDS: ASCORBIC ACID 500 MG TABLET PO SCH ×2 (10:39→18:44)
[2020-01-12] MEDS: DEXAMETHASONE SOD PHOS INJ 10 MG/1 ML VIAL IV SCH (10:39)
[2020-01-12] MEDS: VENLAFAXINE HCL 75 MG TABLET PO SCH (10:39)
[2020-01-12] MEDS: ZINC SULFATE 220 MG CAPSULE PO SCH (10:39)
[2020-01-12] MEDS: ENOXAPARIN SODIUM INJ 60 MG/0.6 ML DISP.SYRIN SUBCUT SCH (10:40)
[2020-01-12] MEDS: DOXYCYCLINE HYCLATE 100 MG in DEXTROSE 5%-WATER 250 ML IV SCH (12:09)
--- NOTE | 2020-01-12 17:47 | PDOC PROGRESS REPORT ---
Subjective Progress Note for:: 01/12/20 Subjective:: Patient c/o sob today. Not having any fevers. Not eating much. She was notably on bipap this morning at 100% fio2. Reason For Visit: SYSTEMIC INFLAMMATORY RESPONSE, HYPOTENSION, Physical Exam Vital Signs: Temp Pulse Resp BP Pulse Ox 97.5 F 84 24 H 127/70 H 98 01/12/20 12:32 01/12/20 15:49 01/12/20 12:32 01/12/20 15:49 01/12/20 08:25 Intake & Output 01/11/20 01/12/20 01/13/20 06:59 06:59 06:59 Intake Total 2075 675 Output Total 1075 1425 Balance 1000 -750 Weight 74 kg 73.2 kg General appearance: PRESENT: no acute distress, cooperative Head exam: PRESENT: normocephalic Eye exam: ABSENT: EOMI Respiratory exam: PRESENT: symmetrical, unlabored. ABSENT: accessory muscle use, tachypnea, wheezes Cardiovascular exam: PRESENT: RRR, +S1, +S2. ABSENT: tachycardia GI/Abdominal exam: PRESENT: soft. ABSENT: rebound, rigid, tenderness Neurological exam: PRESENT: alert, awake Psychiatric exam: ABSENT: agitated, anxious Focused psych exam: ABSENT: pressured speech Skin exam: PRESENT: jaundice Results Laboratory Results: 01/12/20 04:48 01/12/20 04:48 01/12/20 01/12/20 04:48 04:48 WBC 15.9 H RBC 4.21 Hgb 10.3 L Hct 32.1 L MCV 76 L MCH 24.4 L MCHC 32.0 RDW 18.4 H Plt Count 233 Seg Neutrophils % Not Reportable Sodium Cancelled Potassium Cancelled Chloride Cancelled Carbon Dioxide Cancelled Anion Gap Cancelled BUN Cancelled Creatinine Cancelled Est GFR ( Amer) Cancelled Est GFR (Non-Af Amer) Cancelled Glucose Cancelled Calcium Cancelled Total Bilirubin Cancelled AST Cancelled Alkaline Phosphatase Cancelled Total Protein Cancelled Albumin Cancelled 01/05/20 12:45 Troponin I 0.019 Impressions: Abdomen Ultrasound 01/11/20 00:00 IMPRESSION: Limited exam due to body habitus and respiratory motion. Cholelithiasis with gallbladder dilation and mild wall thickening. Negative pericholecystic fluid or reported sonographic Cooper's sign. Findings no ndiagnostic for, but may represent early acute cholecystitis. Recommend correlation with patient symptoms and lab findings. Chest X-Ray 01/11/20 00:00 IMPRESSION: Coarse chronic interstitial changes with increased interstitial opacities from priors may represent superimposed edema or atypical infection. Assessment and Plan - Diagnosis (1) Pneumonia due to COVID-19 virus Is this a current diagnosis for this admission?: Yes Plan: Still quite hypoxic Received doxycycline and Rocephin for 6 days which I will go ahead and discontinue now Received convalescent plasma have discussed with pharmacy indicates patient does not qualify for remdesivir due to significant transaminitis Continue dexamethasone (2) Acute respiratory failure with hypoxia Is this a current diagnosis for this admission?: Yes Plan: Secondary to COVID-19 infection. Repeat chest x-ray on 01/11/2020 shows significant bilateral interstitial opacities. Continue dexamethasone and treatment of COVID-19 Albuterol Currently receiving trial of IV Lasix to see if some diuresis can help Able to get patient down to CPAP fio2 60% and PEEP of 12 with spo2 of 95%. We will wean as tolerated. Apparently patient does a lot of mouth breathing so may be somewhat challenging to achieve adequate saturation with high flow nasal cannula. (3) Hepatitis Is this a current diagnosis for this admission?: Yes Plan: Patient has very pronounced transaminitis with only mild direct hyperbilirubinemia. No evidence of liver failure at this time based of coagulation studies. Hepatocellular injury pattern with suspicion is for viral hepatitis possibly COVID19 Abdominal ultrasound does not show any biliary tract obstruction and ALP is only minimally elevated. We will check Hepatitis A/B/C serologies Will hold amiodarone and atorvastatin for now Monitor CMP (4) Atrial fibrillation Qualifiers: Atrial fibrillation type: longstanding persistent Qualified Code(s): I48.11 - Longstanding persistent atrial fibrillation Is this a current diagnosis for this admission?: Yes Plan: History of atrial fibrillation. Hold amiodarone given hepatic injury. Resume Eliquis. Discontinue Lovenox. (5) Hypotension Qualifiers: Hypotension type: unspecified hypotension type Qualified Code(s): I95.9 - Hypotension, unspecified Is this a current diagnosis for this admission?: Yes Plan: Hypotension on midodrine at home. Currently not hypotensive and not on midodrine. (6) PVD (peripheral vascular disease) Is this a current diagnosis for this admission?: Yes (7) Debility Is this a current diagnosis for this admission?: Yes - Time Time Spent with patient: 25-34 minutes Anticipated Discharge Disposition: Home, Self Care Anticipated Discharge Timeframe: >72hours
[2020-01-12] MEDS: ALBUTEROL SULFATE HFA (90 MCG/PUFF) 8 GM MDI IH SCH (19:03)
[2020-01-12] MEDS: APIXABAN 5 MG TABLET PO SCH (23:00)
[2020-01-12] MEDS: DONEPEZIL HCL 5 MG TABLET PO SCH (23:00)
[2020-01-13] MEDS ORDERED: ALPRAZOLAM 0.5 MG TABLET PO ONE (01:39)
[2020-01-13] MEDS: TEMAZEPAM 7.5 MG CAPSULE PO PRN ×2 (02:01→23:55)
[2020-01-13] MEDS: FUROSEMIDE INJ/PF 40 MG/4 ML SDV IV SCH ×2 (06:15→16:09)
[2020-01-13] MEDS: ALBUTEROL SULFATE HFA (90 MCG/PUFF) 8 GM MDI IH SCH ×4 (06:44→18:30)
[2020-01-13 08:37] LABS: HEPATITS B SURFACE ANTIGEN Negative (Negative)
[2020-01-13 09:10] LABS: HEPATITIS C VIRUS ANTIBODY <0.1 s/co ratio (0.0-0.9)
[2020-01-13] MEDS ORDERED: ENOXAPARIN SODIUM INJ 60 MG/0.6 ML DISP.SYRIN SUBCUT SCH (10:00)
[2020-01-13] MEDS: FAMOTIDINE 20 MG TABLET PO SCH ×2 (11:13→21:19)
[2020-01-13] MEDS: ASCORBIC ACID 500 MG TABLET PO SCH ×2 (11:13→18:30)
[2020-01-13] MEDS: POTASSIUM CHLORIDE 10 MEQ TABLET.ER PO SCH ×2 (11:13→21:19)
[2020-01-13] MEDS: APIXABAN 5 MG TABLET PO SCH ×2 (11:13→21:19)
[2020-01-13] MEDS: CHOLECALCIFEROL (D3) 1,000 UNIT (25 MCG) TABLET PO SCH (11:13)
[2020-01-13] MEDS: ZINC SULFATE 220 MG CAPSULE PO SCH (11:13)
[2020-01-13] MEDS: ASPIRIN 81 MG TABLET, ENT COATED PO SCH (11:13)
[2020-01-13] MEDS: VENLAFAXINE HCL 75 MG TABLET PO SCH (11:13)
[2020-01-13] MEDS: DEXAMETHASONE SOD PHOS INJ 10 MG/1 ML VIAL IV SCH (11:20)
[2020-01-13] MEDS: DOCUSATE SODIUM 100 MG CAPSULE PO SCH (11:24)
--- NOTE | 2020-01-13 11:25 | Progress Note ---
Provider Note Provider Note: Called to evaluate the patient regarding IV access. Ultrasound was used to evaluate bilateral upper extremities. The patient has no obvious peripheral IV sites in her upper extremities. She is currently fully anticoagulated on Eliquis. She is acutely short of breath and confused. In light of all of her other comorbidities, the only reasonable alternative is a femoral central line. I have discussed this with the patient's [id number], who helps make her medical decisions. She has consented to femoral central line placement. She is aware of the risks of significant bleeding, and other possible complications. I would recommend that this central line be discontinued as soon as possible, or when her Eliquis can be discontinued, and a more suitable (suprasternal) central line can be placed.
[2020-01-13 11:49] LABS: ARTERIAL BLOOD BASE EXCESS -5.1 mmol/L; ARTERIAL BLOOD FIO2 90%; ARTERIAL BLOOD H2CO3 0.77 mmol/L (1.05-1.35); ARTERIAL BLOOD HCO3 17.3 mmol/L (20-24); ARTERIAL BLOOD O2 SATURATION 78.2 % (94-98); ARTERIAL BLOOD PCO2 25.7 mmHg (35-45); ARTERIAL BLOOD PH 7.45 (7.35-7.45); ARTERIAL BLOOD TOTAL CO2 18.1 mmol/L (21-25)
[2020-01-13 11:50] LABS: ARTERIAL BLOOD PO2 39.7 mmHg (80-100)
--- NOTE | 2020-01-13 13:32 | PDOC PROGRESS REPORT ---
Subjective Progress Note for:: 01/13/20 Subjective:: This morning, patient was on CPAP. We will transition her to high flow nasal cannula. She was breathing adequately on the CPAP and denied any shortness of breath or difficulty breathing while on it. She is anxious and wanting to go home soon. I discussed with her that she is not yet optimized to be discharged home. I also discussed with her that she would likely be here for several days. We have had significant difficulty obtaining peripheral IV access on patient and I have discussed with surgery about placing a central line for IV access especially given the severity of her current disease. Reason For Visit: SYSTEMIC INFLAMMATORY RESPONSE, HYPOTENSION, Physical Exam Vital Signs: Temp Pulse Resp BP Pulse Ox 98.5 F 91 20 123/57 L 97 01/13/20 07:30 01/13/20 07:30 01/13/20 09:15 01/13/20 07:32 01/13/20 09:15 Intake & Output 01/12/20 01/13/20 01/14/20 06:59 06:59 06:59 Intake Total 675 520 240 Output Total 1425 1380 Balance -750 -860 240 Weight 73.2 kg 73.5 kg General appearance: PRESENT: no acute distress, cooperative Neck exam: ABSENT: JVD Respiratory exam: PRESENT: rales, symmetrical, tachypnea, unlabored. ABSENT: accessory muscle use, retraction, wheezes Cardiovascular exam: PRESENT: RRR, +S1, +S2. ABSENT: tachycardia GI/Abdominal exam: PRESENT: soft. ABSENT: rebound, rigid, tenderness Extremities exam: PRESENT: other - Feet are cool to the touch with fairly soft DP pulses on palpation Neurological exam: PRESENT: alert, awake Psychiatric exam: ABSENT: agitated, anxious Skin exam: PRESENT: other - Multiple areas of ecchymosis on her arms likely from IV sticks Results Laboratory Results: 01/12/20 04:48 01/12/20 04:48 01/13/20 09:40 Carbonic Acid 0.77 L HCO3/H2CO3 Ratio 22:1 ABG pH 7.45 ABG pCO2 25.7 L ABG pO2 39.7 L* ABG HCO3 17.3 L ABG O2 Saturation 78.2 L ABG Base Excess -5.1 FiO2 90% 01/05/20 12:45 Troponin I 0.019 Impressions: Abdomen Ultrasound 01/11/20 00:00 IMPRESSION: Limited exam due to body habitus and respiratory motion. Cholelithiasis with gallbladder dilation and mild wall thickening. Negative pericholecystic fluid or reported sonographic Cooper's sign. Findings nondiagnostic for, but may represent early acute cholecystitis. Recommend correlation with patient symptoms and lab findings. Chest X-Ray 01/11/20 00:00 IMPRESSION: Coarse chronic interstitial changes with increased interstitial opacities from priors may represent superimposed edema or atypical infection. Assessment and Plan - Diagnosis (1) Pneumonia due to COVID-19 virus Is this a current diagnosis for this admission?: Yes Plan: Still quite hypoxic Received doxycycline and Rocephin for 6 days earlier in admission. Received convalescent plasma Pharmacist has indicated patient does not qualify for remdesivir due to significant transaminitis Continue dexamethasone day 9 Encourage po nutrition Central line to be placed today as we do not have adequate IV access. Plan discussed in detail with patient's son Gurwinder yesterday and today. (2) Acute respiratory failure with hypoxia Is this a current diagnosis for this admission?: Yes Plan: Secondary to COVID-19 pneumonia. Repeat chest x-ray on 01/11/2020 shows significant bilateral interstitial opacities. Continue dexamethasone Albuterol Currently receiving trial of IV Lasix to see if some diuresis can help - check metabolic panel today Maintaining adequate SPO2 in the mid 90s on CPAP of 12 & fio2 50%. However, transitioned to HFNC to allow patient eat more. Currently spo2 of 95% but on 90%/60L. ABG attempted but result indicates that it was a VBG. (3) Hepatitis Is this a current diagnosis for this admission?: Yes Plan: Patient has very pronounced transaminitis with only mild direct hyperbil irubinemia. No evidence of liver failure at this time based of coagulation studies. Hepatocellular injury pattern with suspicion is for viral hepatitis possibly COVID19. Other etiology include medication toxicity. Abdominal ultrasound does not show any biliary tract obstruction and ALP is only minimally elevated. Hepatitis A/B/C serologies are negative. Holding amiodarone and atorvastatin for now Monitor CMP (4) Atrial fibrillation Qualifiers: Atrial fibrillation type: longstanding persistent Qualified Code(s): I48.11 - Longstanding persistent atrial fibrillation Is this a current diagnosis for this admission?: Yes Plan: History of atrial fibrillation. Hold amiodarone given hepatic injury. Continue Eliquis. (5) Hypotension Qualifiers: Hypotension type: unspecified hypotension type Qualified Code(s): I95.9 - Hypotension, unspecified Is this a current diagnosis for this admission?: Yes Plan: Hypotension on midodrine at home. Currently not hypotensive and not on midodrine. (6) PVD (peripheral vascular disease) Is this a current diagnosis for this admission?: Yes Plan: Continue eliquis and aspirin. Atorvastatin on hold. Outpatient PCP follow-up. (7) Debility Is this a current diagnosis for this admission?: Yes - Time Time Spent with patient: 25-34 minutes Anticipated Discharge Disposition: Home with Home Health Anticipated Discharge Timeframe: >72hrs
--- NOTE | 2020-01-13 13:51 | Operative Report ---
Nonrecallable Operative Report DATE OF SURGERY: 01/13/20 PREOPERATIVE DIAGNOSIS: Phlebosclerosis POSTOPERATIVE DIAGNOSIS: Same as above OPERATION: 1. Ultrasound-guided central venous puncture. 2. Right femoral vein central line placement SURGEON: CORRINA TORIBIO ANESTHESIA: Local TISSUE REMOVED OR ALTERED: None COMPLICATIONS: None apparent ESTIMATED BLOOD LOSS: Minimal PROCEDURE: Drains/implants: Central line placed in the right femoral vein. Procedure in detail: After informed consent was obtained, the patient was sat in the hospital room. The area of the right groin was prepped and draped in a normal sterile fashion. An ultrasound was used to identify the right femoral vein. Under direct ultrasonic guidance, the right femoral vein was cannulated using the supplied access needle. Dark venous, nonpulsatile blood was returned in the syringe. The wire was then inserted into the vein easily. The wire was found to be within the lumen of the vein using the ultrasound device. Picture documentation was obtained. The catheter was then slid over the wire using a modified Seldinger technique. The catheter was sutured to the skin. The catheter was then aspirated and flushed x3 without difficulty. The catheter returned dark venous, nonpulsatile blood. Once the catheter was sutured to the skin, a Biopatch and occlusive dressing were placed. The procedure was at this time concluded. All sponge, instrument, and needle counts were correct x2. Condition: Fair.
[2020-01-13 14:06] LABS: ALBUMIN 2.7 g/dL (3.5-5.0); ALKALINE PHOSPHATASE 248 U/L (38-126); ANION GAP 14 (5-19); ASPARTATE AMINO TRANSFERASE 331 U/L (14-36); BILIRUBIN,DIRECT 0.9 mg/dL (0.0-0.4); BILIRUBIN,TOTAL 0.9 mg/dL (0.2-1.3); BLOOD UREA NITROGEN 31 mg/dL (7-20); CALCIUM 8.5 mg/dL (8.4-10.2); CARBON DIOXIDE 18 mmol/L (22-30); CHLORIDE 106 mmol/L (98-107); GLUCOSE 123 mg/dL (75-110); POTASSIUM 3.9 mmol/L (3.6-5.0); TOTAL PROTEIN 5.6 g/dL (6.3-8.2)
[2020-01-13 14:23] LABS: FREE T3 2.59 pg/mL (2.77-5.27); FREE T4 (FREE THYROXINE) 5.22 ng/dL (0.78-2.19)
[2020-01-13] MEDS ORDERED: DEXTROSE 5%-NORMAL SALINE 1,000 ML IV PRN (14:26)
[2020-01-13 14:37] LABS: THYROID STIMULATING HORMONE 0.02 uIU/mL (0.47-4.68)
[2020-01-13] MEDS: DONEPEZIL HCL 5 MG TABLET PO SCH (21:18)
[2020-01-14] MEDS: ALBUTEROL SULFATE HFA (90 MCG/PUFF) 8 GM MDI IH SCH ×4 (00:57→17:45)
[2020-01-14 04:31] LABS: ALBUMIN 2.6 g/dL (3.5-5.0); ALKALINE PHOSPHATASE 252 U/L (38-126); ANION GAP 13 (5-19); ASPARTATE AMINO TRANSFERASE 294 U/L (14-36); BILIRUBIN,DIRECT 0.6 mg/dL (0.0-0.4); BILIRUBIN,TOTAL 0.6 mg/dL (0.2-1.3); BLOOD UREA NITROGEN 40 mg/dL (7-20); CALCIUM 8.6 mg/dL (8.4-10.2); CARBON DIOXIDE 17 mmol/L (22-30); CHLORIDE 112 mmol/L (98-107); GLUCOSE 245 mg/dL (75-110); POTASSIUM 3.7 mmol/L (3.6-5.0); TOTAL PROTEIN 5.5 g/dL (6.3-8.2)
[2020-01-14] MEDS ORDERED: GLUCAGON,HUMAN RECOMB 1 MG INJ SUBCUT PRN (04:42)
[2020-01-14] MEDS ORDERED: DEXTROSE 50%-WATER 25 GM/50 ML DISP.SYRIN IV PRN ×2 (04:42)
[2020-01-14] MEDS ORDERED: DEXTROSE 40% GEL 15 GM TUBE PO PRN ×2 (04:42)
[2020-01-14 04:51] LABS: MEAN CORPUSCULAR HEMOGLOBIN 24.3 pg (27.0-33.4)
[2020-01-14 05:01] LABS: HEMATOCRIT 28.4 % (36.0-47.0); HEMOGLOBIN 9.1 g/dL (12.0-15.5); MEAN CORPUSCULAR HGB CONC 31.9 g/dL (32.0-36.0); MEAN CORPUSCULAR VOLUME 76 fl (80-97); RED BLOOD COUNT 3.73 10^6/uL (3.72-5.28); RED CELL DISTRIBUTION WIDTH 18.8 % (11.5-14.0); WHITE BLOOD COUNT 18.4 10^3/uL (4.0-10.5)
[2020-01-14 05:23] LABS: ABSOLUTE LYMPHOCYTES# (MANUAL) 0.2 10^3/uL (0.5-4.7); ABSOLUTE MONOCYTES # (MANUAL) 0.4 10^3/uL (0.1-1.4); BASOPHILS % (MANUAL) 0 % (0-2); EOSINOPHILS % (MANUAL) 0 % (0-6); LYMPHOCYTES % (MANUAL) 1 % (13-45); MONOCYTES % (MANUAL) 2 % (3-13); SEGMENTED NEUTROPHILS % (MAN) 97 % (42-78); TOTAL CELLS COUNTED 100
[2020-01-14 05:26] LABS: ANISOCYTOSIS 2+; HYPOCHROMASIA 1+; PLATELET COMMENT ADEQUATE; POIKILOCYTOSIS SLIGHT; POLYCHROMASIA SLIGHT; RBC MORPHOLOGY COMMENT NORMO/NORMO; TARGET CELLS SLIGHT; TEAR DROP CELLS SLIGHT
[2020-01-14 05:27] LABS: PLATELET CLUMPS PRESENT; PLATELET COUNT 294 10^3/uL (150-450)
[2020-01-14] MEDS: PANTOPRAZOLE SODIUM 40 MG VIAL IV SCH (05:32)
[2020-01-14] MEDS ORDERED: DEXTROSE 5%-NORMAL SALINE 1,000 ML IV PRN (07:57)
[2020-01-14] MEDS: ASCORBIC ACID 500 MG TABLET PO SCH ×2 (10:25→17:45)
[2020-01-14] MEDS: CHOLECALCIFEROL (D3) 1,000 UNIT (25 MCG) TABLET PO SCH (10:25)
[2020-01-14] MEDS: ASPIRIN 81 MG TABLET, ENT COATED PO SCH (10:25)
[2020-01-14] MEDS: DEXAMETHASONE SOD PHOS INJ 10 MG/1 ML VIAL IV SCH (10:26)
[2020-01-14] MEDS: POTASSIUM CHLORIDE 10 MEQ TABLET.ER PO SCH (10:26)
[2020-01-14] MEDS: ZINC SULFATE 220 MG CAPSULE PO SCH (10:26)
[2020-01-14] MEDS: VENLAFAXINE HCL 75 MG TABLET PO SCH (10:26)
[2020-01-14] MEDS: DOCUSATE SODIUM 100 MG CAPSULE PO SCH (10:27)
[2020-01-14] MEDS ORDERED: MAG HYDROX/AL HYDROX/SIMETH SUSP 30 ML UDCUP PO ONE ×2 (11:30)
--- NOTE | 2020-01-14 12:00 | RADIOLOGY REPORT (SQ) ---
EXAM DESCRIPTION: KUB/ABDOMEN (SINGLE VIEW) IMAGES COMPLETED DATE/TIME: 01/14/2020 11:52 am REASON FOR STUDY: Severe stomach pain/ positive occult stool COMPARISON: None. NUMBER OF VIEWS: One view. TECHNIQUE: Supine radiographic image of the abdomen acquired. LIMITATIONS: Motion artifact. FINDINGS: BOWEL GAS PATTERN: Normal bowel gas pattern. No dilated loops. CALCIFICATIONS: No suspicious calcifications. SOFT TISSUES: No gross mass or suggestion of organomegaly. HARDWARE: Surgical clip. Right femoral catheter. Hardware in the left hip. BONES: No acute fracture. Degenerative changes in the spine. No worrisome bone lesions. OTHER: No other significant finding. IMPRESSION: NO RADIOGRAPHIC EVIDENCE FOR ACUTE ABDOMINAL DISEASE. TECHNICAL DOCUMENTATION: JOB ID: [id number] 2010 [employer]- All Rights Reserved Reading location - IP/workstation name: [email or web address]
[2020-01-14] MEDS ORDERED: MORPHINE SULFATE 10 MG/ML INJ IV ONE (12:51)
[2020-01-14] MEDS ORDERED: SUCRALFATE 1 GM TABLET PO ONE (12:51)
--- NOTE | 2020-01-14 12:59 | PDOC PROGRESS REPORT ---
Subjective Progress Note for:: 01/14/20 Subjective:: Informed by firer portable boiler last night that patient had some black tarry stools. This morning patient is complaining of abdominal pain mostly in her right upper quadrant and epigastrium. She has not had any bowel movement this morning and has not had any hematemesis. I will keep an eye out for this. Unfortunately, given the patient's current condition and her very poor respiratory status at the moment, we cannot perform an EGD at this moment. We will monitor blood counts closely. Reason For Visit: SYSTEMIC INFLAMMATORY RESPONSE, HYPOTENSION, Physical Exam Vital Signs: Temp Pulse Resp BP Pulse Ox 98.0 F 89 34 H 104/85 99 01/14/20 11:32 01/14/20 11:32 01/14/20 11:32 01/14/20 11:32 01/14/20 11:32 Intake & Output 01/13/20 01/14/20 01/15/20 06:59 06:59 06:59 Intake Total 520 476 0 Output Total 1380 700 Balance -860 -224 0 Weight 73.5 kg 72.1 kg General appearance: PRESENT: no acute distress, cooperative Neck exam: ABSENT: JVD Respiratory exam: PRESENT: crackles, symmetrical, tachypnea, unlabored. ABSENT: wheezes Cardiovascular exam: PRESENT: RRR, +S1, +S2. ABSENT: tachycardia GI/Abdominal exam: PRESENT: soft, tenderness - RUQ and epigastrium. ABSENT: firm, guarding, rebound, rigid Neurological exam: PRESENT: alert, awake Focused psych exam: ABSENT: pressured speech Skin exam: ABSENT: jaundice Results Laboratory Results: 01/14/20 03:55 01/14/20 03:55 01/13/20 01/13/20 01/14/20 13:00 13:00 03:55 WBC RBC Hgb Hct MCV MCH MCHC RDW Plt Count Seg Neutrophils % Sodium 137.9 142.1 Potassium 3.9 3.7 Chloride 106 112 H Carbon Dioxide 18 L 17 L Anion Gap 14 13 BUN 31 H 40 H Creatinine 1.21 1.31 H Est GFR ( Amer) 52 L 47 L Glucose 123 H 245 H Calcium 8.5 8.6 Total Bilirubin 0.9 0.6 AST 331 H 294 H Alkaline Phosphatase 248 H 252 H Total Protein 5.6 L 5.5 L Albumin 2.7 L 2.6 L TSH 0.02 L Free T4 5.22 H Free T3 pg/mL 2.59 L Stool Occult Blood Blood Type Antibody Screen 01/14/20 01/14/20 01/14/20 03:55 03:55 05:40 WBC 18.4 H RBC 3.73 Hgb 9.1 L Hct 28.4 L MCV 76 L MCH 24.3 L MCHC 31.9 L RDW 18.8 H Plt Count 294 Seg Neutrophils % Not Reportable Sodium Potassium Chloride Carbon Dioxide Anion Gap BUN Creatinine Est GFR ( Amer) Glucose Calcium Total Bilirubin AST Alkaline Phosphatase Total Protein Albumin TSH Free T4 Free T3 pg/mL Stool Occult Blood POSITIVE Blood Type O POSITIVE Antibody Screen NEGATIVE 01/05/20 12:45 Troponin I 0.019 Impressions: Abdomen Ultrasound 01/11/20 00:00 IMPRESSION: Limited exam due to body habitus and respiratory motion. Cholelithiasis with gallbladder dilation and mild wall thickening. Negative pericholecystic fluid or reported sonographic Cooper's sign. Findings nondiagnostic for, but may represent early acute cholecystitis. Recommend correlation with patient symptoms and lab findings. Chest X-Ray 01/11/20 00:00 IMPRESSION: Coarse chronic interstitial changes with increased interstitial op acities from priors may represent superimposed edema or atypical infection. KUB X-Ray 01/14/20 11:08 IMPRESSION: NO RADIOGRAPHIC EVIDENCE FOR ACUTE ABDOMINAL DISEASE. Assessment and Plan - Diagnosis (1) Pneumonia due to COVID-19 virus Is this a current diagnosis for this admission?: Yes Plan: Still quite hypoxic Received doxycycline and Rocephin for 6 days earlier in admission. Received convalescent plasma Pharmacist has indicated patient does not qualify for remdesivir due to significant transaminitis Continue dexamethasone day 10 Encourage po nutrition Central line to be placed today as we do not have adequate IV access. Plan discussed in detail with patient's son Guwrinder today. (2) Acute respiratory failure with hypoxia Is this a current diagnosis for this admission?: Yes Plan: Secondary to COVID-19 pneumonia. No improvement with diuresis and albuterol Continue HFNC during day to allow patient eat more. Currently 90%/60L. CPAP at 12/50% at night (3) Abdominal pain Qualifiers: Abdominal location: right upper quadrant Qualified Code(s): R10.11 - Right upper quadrant pain Is this a current diagnosis for this admission?: Yes Plan: This may be due to tender hepatitis but I do also wonder if patient may have an underlying gastric or duodenal ulcer especially given melena last night. Eliquis has been held Patient started on Protonix IV twice daily, Carafate added. Maalox as needed. KUB unremarkable (4) Melena Is this a current diagnosis for this admission?: Yes Plan: We will monitor patient closely. Unfortunately given the patient's very poor respiratory status she will not be able to tolerate an EGD at this point and as such we will have to manage conservatively at this time. We will monitor her blood count. Treatment as listed above. (5) Hepatitis Is this a current diagnosis for this admission?: Yes Plan: Patient has very pronounced transaminitis with only mild direct hyperbilirubinemia. No evidence of liver failure at this time based of coagulation studies. Hepatocellular injury pattern with suspicion is for viral hepatitis possibly COVID19. Other etiology include medication toxicity from amiodarone. Abdominal ultrasound does not show any biliary tract obstruction and ALP is only minimally elevated. Hepatitis A/B/C serologies are negative. 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 Continue steroids. If patient becomes symptomatic, will consider thioamides. (7) PVD (peripheral vascular disease) Is this a current diagnosis for this admission?: Yes Plan: Continue ecotrin. Atorvastatin on hold. Outpatient PCP follow-up. (8) Atrial fibrillation Qualifiers: Atrial fibrillation type: longstanding persistent Qualified Code(s): I48.11 - Longstanding persistent atrial fibrillation Is this a current diagnosis for this admission?: Yes Plan: History of atrial fibrillation. Hold amiodarone given hepatic injury. Eliquis on hold given melena. Start on Lopressor. Currently in sinus rhythm. (9) Debility Is this a current diagnosis for this admission?: Yes (10) Hypotension Qualifiers: Hypotension type: unspecified hypotension type Qualified Code(s): I95.9 - Hypotension, unspecified Is this a current diagnosis for this admission?: Yes - Time Time Spent with patient: 25-34 minutes Anticipated Discharge Disposition: Home with Home Health Anticipated Discharge Timeframe: undetermined
[2020-01-14] MEDS: SUCRALFATE 1 GM TABLET PO SCH (17:45)
[2020-01-14 20:30] LABS: HEMATOCRIT 27.4 % (36.0-47.0); HEMOGLOBIN 8.6 g/dL (12.0-15.5); MEAN CORPUSCULAR HEMOGLOBIN 24.1 pg (27.0-33.4); MEAN CORPUSCULAR HGB CONC 31.6 g/dL (32.0-36.0); MEAN CORPUSCULAR VOLUME 76 fl (80-97); PLATELET COUNT 312 10^3/uL (150-450); RED BLOOD COUNT 3.58 10^6/uL (3.72-5.28); RED CELL DISTRIBUTION WIDTH 18.3 % (11.5-14.0); WHITE BLOOD COUNT 27.2 10^3/uL (4.0-10.5)
[2020-01-14 21:00] LABS: ARTERIAL BLOOD BASE EXCESS -11.1 mmol/L; ARTERIAL BLOOD H2CO3 0.67 mmol/L (1.05-1.35); ARTERIAL BLOOD HCO3 12.7 mmol/L (20-24); ARTERIAL BLOOD O2 SATURATION 85.5 % (94-98); ARTERIAL BLOOD PCO2 22.3 mmHg (35-45); ARTERIAL BLOOD PH 7.37 (7.35-7.45); ARTERIAL BLOOD PO2 49.9 mmHg (80-100); ARTERIAL BLOOD TOTAL CO2 13.3 mmol/L (21-25)
[2020-01-14 21:09] VITALS: BP 96/83
[2020-01-14] MEDS ORDERED: METOPROLOL TARTRATE 25 MG TABLET PO SCH (22:00)
[2020-01-14] MEDS ORDERED: MORPHINE SULFATE 10 MG/ML INJ INJ ONE (23:00)
[2020-01-15] MEDS: DONEPEZIL HCL 5 MG TABLET PO SCH (00:20)
[2020-01-15] MEDS: SUCRALFATE 1 GM TABLET PO SCH (00:20)
[2020-01-15] MEDS: PANTOPRAZOLE SODIUM 40 MG VIAL IV SCH (00:21)
[2020-01-15] MEDS: POTASSIUM CHLORIDE 10 MEQ TABLET.ER PO SCH (00:21)
--- NOTE | 2020-01-15 02:15 | Death Summary ---
Summary Date : 01/15/20 Time of :: 01:56 Resuscitation Status: Comfort Measures Only - Final Diagnosis (1) Pneumonia due to COVID-19 virus Is this a current diagnosis for this admission?: Yes
--- NOTE | 2020-01-15 08:02 | Death Summary ---
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 Patient was also noted to have significant hepatitis thought to be viral hepatitis from COVID-19. Another potential etiology was thought to be amiodarone toxicity. Her hepatitis A/B/C serologies were negative and abdominal ultrasound showed no biliary tract disease. Patient was treated with convalescent plasma. She was not a candidate for remdesivir secondary to her severe transaminitis. She was treated with IV dexamethasone for 10 days. She also was noted to have hyperthyroidism secondary to amiodarone toxicity. Amiodarone has been discontinued. Atorvastatin was also held. Patient also developed some melanotic stools. She was converted to IV Protonix and started on Carafate. Abdominal pain persisted. KUB was unremarkable and did not show any bowel perforation. Patient was not a candidate for EGD for evaluation of melena due to her severe hypoxic respiratory failure. However her H&H did not show any grand drop in hemoglobin. She was managed medically with suspicion of peptic ulcer. Patient continued to get significantly hypoxic throughout her hospital stay secondary to COVID-19 pneumonia requiring high levels of oxygen supplementation with high flow nasal cannula FiO2 of 90% and flow of 60 L going back and forth between that and CPAP especially at nighttime PEEP of 12 FiO2 of 60%. Given patient's severe hypoxia, I discussed with patient's son prepared here for the likelihood that patient may not recover and may ultimately lead to her demise. He understood and confirmed DNR/DNI status and to continue treatment. Patient continued to decompensate and became more hypoxic. Trials of Lasix and bronchodilators were ineffective. Eventually patient succumbed to her hypoxic respiratory failure secondary to COVID-19 pneumonia and overnight, patient's son opted to proceed with comfort care according to the window shade cutter and mounter provider. Patient was converted to comfort care and on 01/15/2020 at 1:56 AM. Patient was pronounced by window shade cutter and mounter Dr. Goldsmith.
== END 2020-01-15 03:00 | DRG 177 ==
LOC: ER 11:23 → EH 15:40 → 3W 18:11 → 3N 01-07 17:03
PROVIDERS: ADMIT Internal Medicine; ATTEND Internal Medicine
PROC: XW13325 Transfusion of Convalescent Plasma (Nonautologous) into Peripheral Vein, Percutaneous Approach, New Technology Group 5 (ICD-10-PCS; principal; 2020-01-09)
PROC: 06HM33Z Insertion of Infusion Device into Right Femoral Vein, Percutaneous Approach (ICD-10-PCS; 2020-01-13)
DX: U07.1 COVID-19 (principal); J96.21 Acute and chronic respiratory failure with hypoxia; J12.89 Other viral pneumonia; I48.11 Longstanding persistent atrial fibrillation; K92.1 Melena; I25.10 Atherosclerotic heart disease of native coronary artery without angina pectoris; I10 Essential (primary) hypertension; F03.90 Unspecified dementia, unspecified severity, without behavioral disturbance, psychotic disturbance, mood disturbance, and anxiety; I73.9 Peripheral vascular disease, unspecified; F41.9 Anxiety disorder, unspecified; Z66 Do not resuscitate; I87.8 Other specified disorders of veins; J44.9 Chronic obstructive pulmonary disease, unspecified; K21.9 Gastro-esophageal reflux disease without esophagitis; Z87.891 Personal history of nicotine dependence; Z86.718 Personal history of other venous thrombosis and embolism; Z82.49 Family history of ischemic heart disease and other diseases of the circulatory system; Z79.01 Long term (current) use of anticoagulants; Z79.899 Other long term (current) drug therapy; R74.01 Elevation of levels of liver transaminase levels; Z99.81 Dependence on supplemental oxygen; E05.80 Other thyrotoxicosis without thyrotoxic crisis or storm; T46.2X5A Adverse effect of other antidysrhythmic drugs, initial encounter; Z51.5 Encounter for palliative care
CPT/HCPCS: 36415; 36430; 36600; 71045; 74018; 76705; 80053; 80074; 81001; 82272; 82728; 82803; 82962; 83605; 83615; 83735; 84439; 84443; 84481; 84484; 85025; 85379; 85610; 86850; 86900; 86901; 87040; 87070; 87340; 87635; 87804; 87880; 93005; 93010; 94640; 94660; 96361; 96365; 99285; C9113; C9803; J0692; J0696; J1100; J1642; J1650; J1940; J2270; J3475; J3480; J3490; J7030; J7040; J7042; J7060